=== PATIENT | male | born 1955 | race African-American/Black ===

== ENCOUNTER 2020-07-18 05:16 | Emergency (ER) | payer MEDICAID ==
[~2020-07-18 05:16] MED LIST: ASPI-1497 PO; ATOR40TA70; CLOP75TA33; NIFE60TA82
[2020-07-18 06:38] LABS: BASOPHILS % 0.5 % (0.0-2.0); EOSINOPHILS % 0.8 % (0.0-5.0); HEMATOCRIT. 39.4 % (42.0-52.0); HEMOGLOBIN. 13.4 g/dL (14.0-18.0); LYMPHOCYTES % 32.5 % (20.0-50.0); MEAN CORPUSCULAR VOLUME 91.2 fL (80.0-94.0); MEAN PLATELET VOLUME 7.9 fl (7.4-10.4); MONOCYTES % 8.7 % (2.0-8.0); NEUTROPHILS % 57.5 % (40.0-76.0); PLATELET 141 x1000/uL (130-400); RED BLOOD CELL COUNT 4.32 mill/uL (4.7-6.1); RED CELL DISTRIBUTION WIDTH 14.8 % (11.6-14.6)
[2020-07-18 06:46] LABS: CHLORIDE 110 mEq/L (98-107)
[2020-07-18 09:14] VITALS: BP 149/70
== END 2020-07-18 09:30 | disposition home or self-care (01) ==
LOC: ER 05:16
DX: R00.2 Palpitations (principal); I10 Essential (primary) hypertension; E78.5 Hyperlipidemia, unspecified; Z95.4 Presence of other heart-valve replacement
CPT/HCPCS: 36415; 71045; 80053; 83880; 84484; 85025; 93005; 99285

== ENCOUNTER 2022-04-17 13:53 | Inpatient (IN) | payer OTHER ==
[~2022-04-17] VITALS: Ht 195.6 cm; Wt 92.1 kg
[~2022-04-17 13:53] MED LIST changes: -ASPI-1497 PO; -NIFE60TA82
[2022-04-17 15:17] LABS: CHLORIDE 110 mEq/L (98-107)
[2022-04-17 15:22] LABS: BASOPHILS % 0.5 % (0.0-2.0); HEMATOCRIT. 34.1 % (42.0-52.0); HEMOGLOBIN. 11.4 g/dL (14.0-18.0); MEAN CORPUSCULAR HEMOGLOBIN 29.6 pg (28.0-32.0); MEAN CORPUSCULAR VOLUME 88.9 fL (80.0-94.0); MEAN PLATELET VOLUME 7.8 fl (7.4-10.4); MONOCYTES % 8.3 % (2.0-8.0); NEUTROPHILS % 72.2 % (40.0-76.0); PLATELET 240 x1000/uL (130-400); RED BLOOD CELL COUNT 3.84 mill/uL (4.7-6.1); RED CELL DISTRIBUTION WIDTH 15.2 % (11.6-14.6)
[2022-04-17] MEDS: ALBUTEROL (0.083%) 2.5MG/3ML NEB HHN SCH ×3 (16:00→17:08)
[2022-04-17] MEDS ORDERED: AZITHROMYCIN 500MG/250ML 250 ML IV ONE (16:00)
[2022-04-17] MEDS ORDERED: CEFTRIAXONE 2 G PREMIX 50 ML IV ONE (16:00)
[2022-04-17] MEDS ORDERED: FUROSEMIDE 40MG/4ML VIAL IV ONE (16:00)
[2022-04-17] MEDS ORDERED: DEXAMETHASONE 4MG/ML 1ML VIAL IV ONE (16:00)
[2022-04-17] MEDS ORDERED: CEFTRIAXONE 2 G in DEXTROSE 5% WATER 50 ML IV NR (16:00)
[2022-04-18 01:50] VITALS: BP 133/57
[2022-04-18] MEDS ORDERED: ONDANSETRON HCL 4MG/2ML INJ IV PRN (02:45)
[2022-04-18] MEDS ORDERED: IPRATROPIUM/ALBUTEROL 0.5-3(2.5)MG/3ML NEB HHN PRN (02:45)
[2022-04-18] MEDS ORDERED: ACETAMINOPHEN 325MG TABLET PO PRN ×2 (02:45)
[2022-04-18] MEDS ORDERED: CLONIDINE 0.1MG TABLET PO PRN (02:45)
[2022-04-18] MEDS ORDERED: MAGNESIUM/ALUMINUM HYDROXIDE/SIMETHICONE 30ML UDC PO PRN (02:45)
[2022-04-18] MEDS ORDERED: GUAIFENESIN 200MG/10ML SUGAR FREE UDC PO PRN (02:45)
[2022-04-18] MEDS ORDERED: CEFTRIAXONE 1 G PREMIX 50 ML IV SCH (02:45)
[2022-04-18 04:00] VITALS: BP 111/54
[2022-04-18 08:00] VITALS: BP 135/58
[2022-04-18] MEDS ORDERED: FUROSEMIDE 20MG TABLET PO SCH (09:15)
[2022-04-18] MEDS: METOPROLOL TARTRATE 25MG TABLET PO SCH ×2 (09:38→16:34)
[2022-04-18] MEDS: ASPIRIN 81MG EC TABLET PO SCH (09:38)
[2022-04-18] MEDS: CLOPIDOGREL 75MG TABLET PO SCH (09:38)
[2022-04-18] MEDS: ENOXAPARIN 40MG/0.4ML SYR SUBCUT SCH (09:39)
[2022-04-18 10:22] LABS: BG BASE EXCESS -1.1 mmol/L (-2.0-2.0); BG DEOXYHEMOGLOBIN 5.3 % (0.0-5.0); BG FRACTION INSPIRED OXYGEN 21; BG HCO3 ACT 22.5 mmol/L (22.0-26.0); BG METHEMOGLOBIN 0.3 % (0.0-1.5); BG OXYGEN SATURATION 94.6 % (92.0-98.5); BG OXYHEMOGLOBIN 93.4 % (94.0-97.0); BG PCO2 34.3 mmHg (35.0-45.0); BG PH 7.435 (7.350-7.450); BG PO2 73.4 mmHg (75.0-100.0); BG SAMPLE SITE RIGHT RADIAL; BG TOTAL HEMOGLOBIN 12.6 g/dL (12.0-18.0); BG VENT MODE ROOM AIR
[2022-04-18 10:37] LABS: T4 FREE 1.37 ng/dL (0.76-1.46)
[2022-04-18 12:00] VITALS: BP 152/76
[2022-04-18] MEDS ORDERED: ALBUTEROL (0.083%) 2.5MG/3ML NEB HHN PRN (12:15)
[2022-04-18] MEDS ORDERED: IPRATROPIUM BROMIDE (0.02%) 0.5MG/2.5ML NEB HHN PRN (12:15)
[2022-04-18 13:03] LABS: CLARITY URINE CLEAR (CLEAR); COLOR URINE YELLOW (YELLOW); KETONES URINE NEGATIVE (NEGATIVE); LEUKOCYTE ESTERASE URINE NEGATIVE (NEGATIVE); NITRITE URINE NEGATIVE (NEGATIVE); OCCULT BLOOD URINE 2+ (NEGATIVE); PROTEIN URINE 1+ (NEGATIVE); SPECIFIC GRAVITY URINE 1.025 (1.005-1.030)
[2022-04-18 13:29] LABS: *AMPHETAMINES SCREEN URINE NEGATIVE (NEGATIVE); *BARBITURATES SCREEN URINE NEGATIVE (NEGATIVE); *BENZODIAZEPINES SCREEN URINE NEGATIVE (NEGATIVE); *COCAINE SCREEN URINE NEGATIVE (NEGATIVE); CANNABINOID URINE SCREEN NEGATIVE (NEGATIVE); METHADONE URINE SCREEN NEGATIVE (NEGATIVE); OPIATES URINE SCREEN NEGATIVE (NEGATIVE); PHENCYCLIDINE URINE SCREEN NEGATIVE (NEGATIVE)
[2022-04-18] MEDS ORDERED: CEFTRIAXONE 1,000 MG in DEXTROSE 5% WATER 50 ML IV SCH (15:00)
[2022-04-18] MEDS: AMLODIPINE 5MG TABLET PO SCH (15:07)
[2022-04-18 15:12] LABS: FOLIC ACID (FOLATE) SERUM 11.7 ng/mL (>5.38)
[2022-04-18 16:00] VITALS: BP 139/70
[2022-04-18] MEDS ORDERED: AZITHROMYCIN 500 MG in DEXT 5% WATER 250 ML IV SCH (16:00)
[2022-04-18] MEDS ORDERED: NITROGLYCERIN 0.4MG TABLET SL SL ONE (16:15)
[2022-04-18] MEDS ORDERED: METOPROLOL TARTRATE 5MG/5ML VIAL IV NR (16:21)
[2022-04-18 17:36] LABS: INR 1.1; PROTHROMBIN TIME 11.6 sec (9.6-11.0)
[2022-04-18] MEDS: FUROSEMIDE 20MG TABLET PO SCH (19:08)
[2022-04-18 20:00] VITALS: BP 127/77
[2022-04-18] MEDS ORDERED: IPRATROPIUM/ALBUTEROL 0.5-3(2.5)MG/3ML NEB HHN SCH (20:00)
[2022-04-18] MEDS: ATORVASTATIN CALCIUM 40MG TABLET PO SCH (20:54)
[2022-04-18] MEDS: FAMOTIDINE 20MG TABLET PO SCH (20:54)
[2022-04-18] MEDS: ALBUTEROL (0.083%) 2.5MG/3ML NEB HHN SCH (21:27)
[2022-04-18] MEDS: IPRATROPIUM BROMIDE (0.02%) 0.5MG/2.5ML NEB HHN SCH (21:27)
[2022-04-19] VITALS: BP 105/58
[2022-04-19] MEDS: ALBUTEROL (0.083%) 2.5MG/3ML NEB HHN SCH ×7 (01:30→21:08)
[2022-04-19] MEDS: IPRATROPIUM BROMIDE (0.02%) 0.5MG/2.5ML NEB HHN SCH ×6 (01:30→21:08)
[2022-04-19 04:00] VITALS: BP 112/50
[2022-04-19 06:25] LABS: BASOPHILS % 0.4 % (0.0-2.0); EOSINOPHILS % 0.9 % (0.0-5.0); HEMATOCRIT. 35.6 % (42.0-52.0); HEMOGLOBIN. 11.3 g/dL (14.0-18.0); LYMPHOCYTES % 23.8 % (20.0-50.0); MEAN CORPUSCULAR HEMOGLOBIN 29.7 pg (28.0-32.0); MEAN CORPUSCULAR VOLUME 93.1 fL (80.0-94.0); MONOCYTES % 7.5 % (2.0-8.0); NEUTROPHILS % 67.4 % (40.0-76.0); PLATELET 235 x1000/uL (130-400); RED BLOOD CELL COUNT 3.82 mill/uL (4.7-6.1)
[2022-04-19] MEDS: FUROSEMIDE 20MG TABLET PO SCH ×2 (06:26→17:25)
[2022-04-19 06:46] LABS: CHLORIDE 106 mEq/L (98-107)
[2022-04-19 06:56] LABS: PHOSPHORUS 4.9 mg/dL (2.5-4.9)
[2022-04-19 08:00] VITALS: BP 138/59
[2022-04-19] MEDS: ASPIRIN 81MG EC TABLET PO SCH (09:24)
[2022-04-19] MEDS: AMLODIPINE 5MG TABLET PO SCH (09:27)
[2022-04-19] MEDS: CLOPIDOGREL 75MG TABLET PO SCH (09:27)
[2022-04-19] MEDS: METOPROLOL TARTRATE 25MG TABLET PO SCH ×2 (09:27→17:25)
[2022-04-19] MEDS: ENOXAPARIN 40MG/0.4ML SYR SUBCUT SCH (09:28)
[2022-04-19] MEDS ORDERED: SODIUM CHLORIDE 0.45% 500 ML IV ONE (10:45)
[2022-04-19 12:00] VITALS: BP 130/70
[2022-04-19 16:00] VITALS: BP 138/74
[2022-04-19 20:00] VITALS: BP 120/59
[2022-04-19] MEDS: FAMOTIDINE 20MG TABLET PO SCH (21:44)
[2022-04-19] MEDS: ATORVASTATIN CALCIUM 40MG TABLET PO SCH (21:44)
[2022-04-20] MEDS: IPRATROPIUM BROMIDE (0.02%) 0.5MG/2.5ML NEB HHN SCH ×5 (00:40→22:11)
[2022-04-20] MEDS: ALBUTEROL (0.083%) 2.5MG/3ML NEB HHN SCH ×5 (00:40→22:11)
[2022-04-20 04:00] VITALS: BP 132/59
[2022-04-20] MEDS: FUROSEMIDE 20MG TABLET PO SCH (06:24)
[2022-04-20 07:09] LABS: PHOSPHORUS 4.6 mg/dL (2.5-4.9)
[2022-04-20 08:00] VITALS: BP 128/62
[2022-04-20 08:10] LABS: HEMATOCRIT 33.4 % (42.0-52.0); HEMOGLOBIN 11.2 g/dL (14.0-18.0); MEAN CORPUSCULAR HEMOGLOBIN 29.6 pg (28.0-32.0); MEAN CORPUSCULAR VOLUME 88.7 fL (80.0-94.0); PLATELET 226 x1000/uL (130-400); RED BLOOD CELL COUNT 3.77 mill/uL (4.7-6.1); RED CELL DISTRIBUTION WIDTH 15.5 % (11.6-14.6)
[2022-04-20] MEDS: ASPIRIN 81MG EC TABLET PO SCH ×2 (09:00→11:57)
[2022-04-20] MEDS: AMLODIPINE 5MG TABLET PO SCH ×2 (09:00→11:57)
[2022-04-20] MEDS: METOPROLOL TARTRATE 25MG TABLET PO SCH ×3 (09:00→17:56)
[2022-04-20] MEDS: CLOPIDOGREL 75MG TABLET PO SCH ×2 (09:00→11:57)
[2022-04-20] MEDS: AZITHROMYCIN 250 MG TABLET PO SCH ×2 (09:00→11:57)
[2022-04-20] MEDS: ENOXAPARIN 40MG/0.4ML SYR SUBCUT SCH ×2 (09:00→11:56)
[2022-04-20 12:00] VITALS: BP 118/44
[2022-04-20 16:00] VITALS: BP 130/60
[2022-04-20 20:00] VITALS: BP 119/51
[2022-04-20] MEDS ORDERED: CEFTRIAXONE 1,000 MG in SODIUM CHLORIDE 0.9% 50 ML IV SCH (20:00)
[2022-04-20] MEDS: FAMOTIDINE 20MG TABLET PO SCH (21:58)
[2022-04-20] MEDS: ATORVASTATIN CALCIUM 40MG TABLET PO SCH (21:58)
[2022-04-20] MEDS: CEFTRIAXONE 1,000 MG in DEXTROSE 5% WATER 50 ML IV SCH (22:00)
[2022-04-21] VITALS: BP 139/55
[2022-04-21] MEDS: ALBUTEROL (0.083%) 2.5MG/3ML NEB HHN SCH ×6 (01:48→21:09)
[2022-04-21] MEDS: IPRATROPIUM BROMIDE (0.02%) 0.5MG/2.5ML NEB HHN SCH ×6 (01:48→21:09)
[2022-04-21 07:59] LABS: BASOPHILS % 0.4 % (0.0-2.0); EOSINOPHILS % 2.5 % (0.0-5.0); HEMOGLOBIN. 10.6 g/dL (14.0-18.0); LYMPHOCYTES % 13.7 % (20.0-50.0); MEAN CORPUSCULAR HEMOGLOBIN 29.9 pg (28.0-32.0); MEAN CORPUSCULAR VOLUME 87.5 fL (80.0-94.0); MEAN PLATELET VOLUME 7.7 fl (7.4-10.4); MONOCYTES % 8.2 % (2.0-8.0); NEUTROPHILS % 75.2 % (40.0-76.0); PLATELET 217 x1000/uL (130-400); RED BLOOD CELL COUNT 3.54 mill/uL (4.7-6.1); RED CELL DISTRIBUTION WIDTH 15.4 % (11.6-14.6)
[2022-04-21 08:22] VITALS: BP 154/49
[2022-04-21 08:24] LABS: CHLORIDE 108 mEq/L (98-107)
[2022-04-21] MEDS: ASPIRIN 81MG EC TABLET PO SCH (09:37)
[2022-04-21] MEDS: CLOPIDOGREL 75MG TABLET PO SCH (09:37)
[2022-04-21] MEDS: METOPROLOL TARTRATE 25MG TABLET PO SCH ×2 (09:37→17:39)
[2022-04-21] MEDS: AZITHROMYCIN 250 MG TABLET PO SCH (09:37)
[2022-04-21] MEDS: AMLODIPINE 5MG TABLET PO SCH (09:38)
[2022-04-21] MEDS: ENOXAPARIN 40MG/0.4ML SYR SUBCUT SCH (09:40)
[2022-04-21 11:49] VITALS: BP 140/54
[2022-04-21 15:50] VITALS: BP 143/67
[2022-04-21 20:00] VITALS: BP 139/60
[2022-04-21] MEDS: CEFTRIAXONE 1,000 MG in DEXTROSE 5% WATER 50 ML IV SCH (21:57)
[2022-04-21] MEDS: ATORVASTATIN CALCIUM 40MG TABLET PO SCH (21:58)
[2022-04-21] MEDS: FAMOTIDINE 20MG TABLET PO SCH (21:58)
[2022-04-22] VITALS: BP 147/58
[2022-04-22] MEDS: ALBUTEROL (0.083%) 2.5MG/3ML NEB HHN SCH ×5 (00:52→21:28)
[2022-04-22] MEDS: IPRATROPIUM BROMIDE (0.02%) 0.5MG/2.5ML NEB HHN SCH ×5 (00:53→21:29)
[2022-04-22 04:00] VITALS: BP 147/62
[2022-04-22 07:17] LABS: BASOPHILS % 0.3 % (0.0-2.0); EOSINOPHILS % 2.6 % (0.0-5.0); HEMATOCRIT. 31.5 % (42.0-52.0); HEMOGLOBIN. 10.7 g/dL (14.0-18.0); MEAN CORPUSCULAR HEMOGLOBIN 29.8 pg (28.0-32.0); MEAN PLATELET VOLUME 7.9 fl (7.4-10.4); MONOCYTES % 8.2 % (2.0-8.0); NEUTROPHILS % 74.9 % (40.0-76.0); PLATELET 232 x1000/uL (130-400); RED BLOOD CELL COUNT 3.58 mill/uL (4.7-6.1); RED CELL DISTRIBUTION WIDTH 15.7 % (11.6-14.6)
[2022-04-22 07:23] LABS: CHLORIDE 109 mEq/L (98-107)
[2022-04-22 08:00] VITALS: BP 154/73
[2022-04-22] MEDS: AMLODIPINE 5MG TABLET PO SCH (09:26)
[2022-04-22] MEDS: CLOPIDOGREL 75MG TABLET PO SCH (09:26)
[2022-04-22] MEDS: ASPIRIN 81MG EC TABLET PO SCH (09:27)
[2022-04-22] MEDS: METOPROLOL TARTRATE 25MG TABLET PO SCH ×2 (09:27→17:00)
[2022-04-22] MEDS: ENOXAPARIN 40MG/0.4ML SYR SUBCUT SCH (09:27)
[2022-04-22] MEDS: AZITHROMYCIN 250 MG TABLET PO SCH (10:20)
[2022-04-22 12:00] VITALS: BP 133/44
[2022-04-22 16:00] VITALS: BP 148/65
[2022-04-22 20:00] VITALS: BP 140/50
[2022-04-22] MEDS: CEFTRIAXONE 1,000 MG in DEXTROSE 5% WATER 50 ML IV SCH (21:32)
[2022-04-22] MEDS: ATORVASTATIN CALCIUM 40MG TABLET PO SCH (21:32)
[2022-04-22] MEDS: FAMOTIDINE 20MG TABLET PO SCH (21:32)
[2022-04-22] MEDS: GUAIFENESIN 600MG ER TABLET PO SCH (21:32)
[2022-04-23] VITALS: BP 134/49
[2022-04-23] MEDS: ALBUTEROL (0.083%) 2.5MG/3ML NEB HHN SCH ×6 (00:09→20:52)
[2022-04-23] MEDS: IPRATROPIUM BROMIDE (0.02%) 0.5MG/2.5ML NEB HHN SCH ×6 (00:09→20:52)
[2022-04-23 04:00] VITALS: BP 154/71
[2022-04-23 06:26] LABS: BASOPHILS % 0.4 % (0.0-2.0); EOSINOPHILS % 2.9 % (0.0-5.0); HEMATOCRIT. 35.5 % (42.0-52.0); HEMOGLOBIN. 12.1 g/dL (14.0-18.0); LYMPHOCYTES % 15.7 % (20.0-50.0); MEAN CORPUSCULAR HEMOGLOBIN 30.4 pg (28.0-32.0); MEAN CORPUSCULAR VOLUME 89.1 fL (80.0-94.0); MEAN PLATELET VOLUME 7.8 fl (7.4-10.4); MONOCYTES % 8.1 % (2.0-8.0); NEUTROPHILS % 72.9 % (40.0-76.0); PLATELET 241 x1000/uL (130-400); RED BLOOD CELL COUNT 3.99 mill/uL (4.7-6.1); RED CELL DISTRIBUTION WIDTH 15.2 % (11.6-14.6)
[2022-04-23 06:42] LABS: CHLORIDE 109 mEq/L (98-107)
[2022-04-23 08:02] VITALS: BP 140/60
[2022-04-23] MEDS: GUAIFENESIN 600MG ER TABLET PO SCH ×2 (09:00→22:03)
[2022-04-23] MEDS: METOPROLOL TARTRATE 25MG TABLET PO SCH ×2 (09:00→17:34)
[2022-04-23] MEDS: CLOPIDOGREL 75MG TABLET PO SCH (09:00)
[2022-04-23] MEDS: ASPIRIN 81MG EC TABLET PO SCH (09:00)
[2022-04-23] MEDS: ENOXAPARIN 40MG/0.4ML SYR SUBCUT SCH (09:00)
[2022-04-23] MEDS: AMLODIPINE 5MG TABLET PO SCH (09:00)
[2022-04-23] MEDS: AZITHROMYCIN 250 MG TABLET PO SCH (09:00)
[2022-04-23 12:03] VITALS: BP 165/58
[2022-04-23] MEDS: SODIUM CHLORIDE 0.45% 1,000 ML IV SCH ×2 (12:21→23:35)
[2022-04-23 16:00] VITALS: BP 152/65
[2022-04-23 20:00] VITALS: BP 133/64
[2022-04-23] MEDS: CEFTRIAXONE 1,000 MG in DEXTROSE 5% WATER 50 ML IV SCH (21:58)
[2022-04-23] MEDS: ATORVASTATIN CALCIUM 40MG TABLET PO SCH (22:03)
[2022-04-23] MEDS: FAMOTIDINE 20MG TABLET PO SCH (22:03)
[2022-04-24] VITALS: BP 165/45
[2022-04-24 04:00] VITALS: BP 147/42
[2022-04-24 07:43] LABS: CHLORIDE 110 mEq/L (98-107)
[2022-04-24 07:52] LABS: PHOSPHORUS 3.9 mg/dL (2.5-4.9)
[2022-04-24 08:00] VITALS: BP 151/59
[2022-04-24] MEDS: ENOXAPARIN 40MG/0.4ML SYR SUBCUT SCH (09:00)
[2022-04-24] MEDS: AZITHROMYCIN 250 MG TABLET PO SCH (09:49)
[2022-04-24] MEDS: CLOPIDOGREL 75MG TABLET PO SCH (09:49)
[2022-04-24] MEDS: GUAIFENESIN 600MG ER TABLET PO SCH ×2 (09:49→20:27)
[2022-04-24] MEDS: ASPIRIN 81MG EC TABLET PO SCH (09:49)
[2022-04-24] MEDS: AMLODIPINE 5MG TABLET PO SCH (09:49)
[2022-04-24] MEDS: METOPROLOL TARTRATE 25MG TABLET PO SCH (09:50)
[2022-04-24 10:27] LABS: BG CARBOXYHEMOGLOBIN 0.8 % (0.5-1.5); BG DEOXYHEMOGLOBIN 13.7 % (0.0-5.0); BG HCO3 ACT 22.1 mmol/L (22.0-26.0); BG METHEMOGLOBIN 0.2 % (0.0-1.5); BG OXYGEN SATURATION 86.2 % (92.0-98.5); BG OXYHEMOGLOBIN 85.3 % (94.0-97.0); BG PCO2 28.4 mmHg (35.0-45.0); BG PH 7.508 (7.350-7.450); BG PO2 48.6 mmHg (75.0-100.0); BG SAMPLE SITE RIGHT RADIAL; BG TOTAL HEMOGLOBIN 12.8 g/dL (12.0-18.0); BG VENT MODE ROOM AIR
[2022-04-24 10:35] LABS: BASOPHILS % 0.4 % (0.0-2.0); EOSINOPHILS % 1.3 % (0.0-5.0); HEMATOCRIT. 32.5 % (42.0-52.0); LYMPHOCYTES % 8.7 % (20.0-50.0); MEAN CORPUSCULAR HEMOGLOBIN 29.6 pg (28.0-32.0); MEAN CORPUSCULAR VOLUME 87.9 fL (80.0-94.0); MEAN PLATELET VOLUME 7.6 fl (7.4-10.4); MONOCYTES % 7.9 % (2.0-8.0); NEUTROPHILS % 81.7 % (40.0-76.0); PLATELET 231 x1000/uL (130-400); RED CELL DISTRIBUTION WIDTH 15.2 % (11.6-14.6)
[2022-04-24] MEDS ORDERED: FUROSEMIDE 20MG/2ML VIAL IVP NR (11:00)
[2022-04-24 12:00] VITALS: BP 127/47
[2022-04-24 16:02] VITALS: BP 130/50
[2022-04-24 20:00] VITALS: BP 138/51
[2022-04-24] MEDS: DOXYCYCLINE 100 MG in DEXT 5% WATER 100 ML IV SCH (20:24)
[2022-04-24] MEDS: CEFTRIAXONE 1,000 MG in DEXTROSE 5% WATER 50 ML IV SCH (20:24)
[2022-04-24] MEDS: CARVEDILOL 3.125 MG TABLET PO SCH (20:26)
[2022-04-24] MEDS: FAMOTIDINE 20MG TABLET PO SCH (20:27)
[2022-04-24] MEDS: ATORVASTATIN CALCIUM 40MG TABLET PO SCH (20:27)
[2022-04-24] MEDS: LOSARTAN POTASSIUM 25 MG TABLET PO SCH (20:27)
[2022-04-25] VITALS: BP 111/47
[2022-04-25 04:00] VITALS: BP 131/71
[2022-04-25 06:31] LABS: BASOPHILS % 0.3 % (0.0-2.0); EOSINOPHILS % 4.3 % (0.0-5.0); HEMATOCRIT. 32.4 % (42.0-52.0); HEMOGLOBIN. 10.8 g/dL (14.0-18.0); LYMPHOCYTES % 18.4 % (20.0-50.0); MEAN CORPUSCULAR VOLUME 89.6 fL (80.0-94.0); MEAN PLATELET VOLUME 7.9 fl (7.4-10.4); MONOCYTES % 9.9 % (2.0-8.0); NEUTROPHILS % 67.1 % (40.0-76.0); PLATELET 231 x1000/uL (130-400); RED BLOOD CELL COUNT 3.62 mill/uL (4.7-6.1); RED CELL DISTRIBUTION WIDTH 15.5 % (11.6-14.6)
[2022-04-25 06:42] LABS: CHLORIDE 104 mEq/L (98-107)
[2022-04-25 08:00] VITALS: BP 136/58
[2022-04-25] MEDS: DOXYCYCLINE 100 MG in DEXT 5% WATER 100 ML IV SCH ×2 (08:32→21:58)
[2022-04-25] MEDS: AMLODIPINE 5MG TABLET PO SCH (08:32)
[2022-04-25] MEDS: ASPIRIN 81MG EC TABLET PO SCH (08:32)
[2022-04-25] MEDS: GUAIFENESIN 600MG ER TABLET PO SCH ×2 (08:33→21:57)
[2022-04-25] MEDS: ENOXAPARIN 40MG/0.4ML SYR SUBCUT SCH (08:33)
[2022-04-25] MEDS: CARVEDILOL 3.125 MG TABLET PO SCH ×2 (08:33→20:54)
[2022-04-25] MEDS: LOSARTAN POTASSIUM 25 MG TABLET PO SCH ×2 (08:33→20:54)
[2022-04-25] MEDS: CLOPIDOGREL 75MG TABLET PO SCH (08:33)
[2022-04-25] MEDS ORDERED: ALBUTEROL (0.083%) 2.5MG/3ML NEB HHN PRN (09:15)
[2022-04-25] MEDS: ALBUTEROL (0.083%) 2.5MG/3ML NEB HHN SCH ×3 (11:10→21:33)
[2022-04-25] MEDS: IPRATROPIUM BROMIDE (0.02%) 0.5MG/2.5ML NEB HHN SCH ×3 (11:11→21:32)
[2022-04-25 12:00] VITALS: BP 126/42
[2022-04-25] MEDS ORDERED: ALBUTEROL (0.083%) 2.5MG/3ML NEB HHN SCH (12:00)
[2022-04-25] MEDS ORDERED: IPRATROPIUM/ALBUTEROL 0.5-3(2.5)MG/3ML NEB HHN SCH (12:00)
[2022-04-25 16:00] VITALS: BP 137/71
[2022-04-25] MEDS ORDERED: IOHEXOL-350 100 ML BOTTLE ONE (16:32)
[2022-04-25 17:30] LABS: BG BASE EXCESS 1.6 mmol/L (-2.0-2.0); BG CARBOXYHEMOGLOBIN 0.6 % (0.5-1.5); BG DEOXYHEMOGLOBIN 6.4 % (0.0-5.0); BG FRACTION INSPIRED OXYGEN 32; BG HCO3 ACT 25.3 mmol/L (22.0-26.0); BG METHEMOGLOBIN 0.2 % (0.0-1.5); BG OXYGEN SATURATION 93.5 % (92.0-98.5); BG OXYHEMOGLOBIN 92.8 % (94.0-97.0); BG PCO2 36.3 mmHg (35.0-45.0); BG PH 7.461 (7.350-7.450); BG PO2 69.1 mmHg (75.0-100.0); BG SAMPLE SITE RIGHT BRACHIAL; BG TOTAL HEMOGLOBIN 11.2 g/dL (12.0-18.0); BG VENT MODE NASAL CANNULA
[2022-04-25] MEDS: METHYLPREDNISOLONE SOD SUCC 40 MG/ML VIAL IV SCH (18:33)
[2022-04-25 20:00] VITALS: BP 111/48
[2022-04-25] MEDS: ATORVASTATIN CALCIUM 40MG TABLET PO SCH (21:57)
[2022-04-25] MEDS: CEFTRIAXONE 1,000 MG in DEXTROSE 5% WATER 50 ML IV SCH (21:58)
[2022-04-25] MEDS: FAMOTIDINE 20MG TABLET PO SCH (21:58)
[2022-04-26] VITALS: BP 122/96
[2022-04-26] MEDS: ALBUTEROL (0.083%) 2.5MG/3ML NEB HHN SCH ×7 (00:34→23:50)
[2022-04-26] MEDS: IPRATROPIUM BROMIDE (0.02%) 0.5MG/2.5ML NEB HHN SCH ×7 (00:34→23:50)
[2022-04-26] MEDS: METHYLPREDNISOLONE SOD SUCC 40 MG/ML VIAL IV SCH ×3 (02:41→18:01)
[2022-04-26 03:00] VITALS: BP 133/62
[2022-04-26 07:26] LABS: HEMOGLOBIN. 10.6 g/dL (14.0-18.0); MEAN CORPUSCULAR HEMOGLOBIN 29.2 pg (28.0-32.0); MEAN CORPUSCULAR VOLUME 88.4 fL (80.0-94.0); PLATELET 233 x1000/uL (130-400); RED BLOOD CELL COUNT 3.62 mill/uL (4.7-6.1); RED CELL DISTRIBUTION WIDTH 15.5 % (11.6-14.6)
[2022-04-26 08:00] VITALS: BP 130/58
[2022-04-26 08:11] LABS: CHLORIDE 105 mEq/L (98-107)
[2022-04-26] MEDS: ASPIRIN 81MG EC TABLET PO SCH (09:34)
[2022-04-26] MEDS: GUAIFENESIN 600MG ER TABLET PO SCH ×2 (09:34→21:38)
[2022-04-26] MEDS: CARVEDILOL 3.125 MG TABLET PO SCH ×2 (09:34→21:38)
[2022-04-26] MEDS: LOSARTAN POTASSIUM 25 MG TABLET PO SCH ×2 (09:35→21:38)
[2022-04-26] MEDS: ENOXAPARIN 40MG/0.4ML SYR SUBCUT SCH (09:35)
[2022-04-26] MEDS: CLOPIDOGREL 75MG TABLET PO SCH (09:35)
[2022-04-26] MEDS: AMLODIPINE 5MG TABLET PO SCH (09:41)
[2022-04-26] MEDS: DOXYCYCLINE 100 MG in DEXT 5% WATER 100 ML IV SCH ×2 (10:32→20:00)
[2022-04-26 12:00] VITALS: BP 141/68
[2022-04-26 13:07] LABS: HIV SCREEN 4G Non Reactive (Non Reactive)
[2022-04-26 13:33] LABS: PLATELET ESTIMATE NORMAL
[2022-04-26 16:00] VITALS: BP 130/55
[2022-04-26 20:00] VITALS: BP 128/64
[2022-04-26] MEDS ORDERED: CEFTRIAXONE 1 G PREMIX 50 ML IV SCH (21:30)
[2022-04-26] MEDS: CEFTRIAXONE 1,000 MG in DEXTROSE 5% WATER 50 ML IV SCH (21:37)
[2022-04-26] MEDS: ATORVASTATIN CALCIUM 40MG TABLET PO SCH (21:38)
[2022-04-26] MEDS: FAMOTIDINE 20MG TABLET PO SCH (21:38)
[2022-04-27] VITALS: BP 117/51
[2022-04-27] MEDS: METHYLPREDNISOLONE SOD SUCC 40 MG/ML VIAL IV SCH ×5 (02:18→23:38)
[2022-04-27] MEDS: IPRATROPIUM BROMIDE (0.02%) 0.5MG/2.5ML NEB HHN SCH ×5 (03:54→20:20)
[2022-04-27] MEDS: ALBUTEROL (0.083%) 2.5MG/3ML NEB HHN SCH ×5 (03:54→20:20)
[2022-04-27 04:00] VITALS: BP 131/86
[2022-04-27 07:37] LABS: HEMATOCRIT 30.8 % (42.0-52.0); HEMOGLOBIN 10.2 g/dL (14.0-18.0); MEAN CORPUSCULAR HEMOGLOBIN 28.7 pg (28.0-32.0); PLATELET 263 x1000/uL (130-400); RED BLOOD CELL COUNT 3.54 mill/uL (4.7-6.1)
[2022-04-27 07:53] LABS: CHLORIDE 108 mEq/L (98-107)
[2022-04-27 08:00] VITALS: BP 123/55
[2022-04-27] MEDS: CARVEDILOL 3.125 MG TABLET PO SCH ×2 (09:21→20:54)
[2022-04-27] MEDS: CLOPIDOGREL 75MG TABLET PO SCH (09:21)
[2022-04-27] MEDS: AMLODIPINE 5MG TABLET PO SCH (09:22)
[2022-04-27] MEDS: LOSARTAN POTASSIUM 25 MG TABLET PO SCH ×2 (09:22→20:53)
[2022-04-27] MEDS: GUAIFENESIN 600MG ER TABLET PO SCH ×2 (09:22→20:51)
[2022-04-27] MEDS: ASPIRIN 81MG EC TABLET PO SCH (09:22)
[2022-04-27] MEDS: DOXYCYCLINE 100 MG in DEXT 5% WATER 100 ML IV SCH ×2 (09:23→20:51)
[2022-04-27] MEDS: ENOXAPARIN 40MG/0.4ML SYR SUBCUT SCH (09:23)
[2022-04-27 12:00] VITALS: BP 126/53
[2022-04-27 16:00] VITALS: BP 139/64
[2022-04-27 20:00] VITALS: BP 133/55
[2022-04-27] MEDS: ATORVASTATIN CALCIUM 40MG TABLET PO SCH (20:51)
[2022-04-27] MEDS: FAMOTIDINE 20MG TABLET PO SCH (20:51)
[2022-04-27] MEDS: CEFTRIAXONE 1,000 MG in DEXTROSE 5% WATER 50 ML IV SCH (22:05)
[2022-04-28] MEDS: ALBUTEROL (0.083%) 2.5MG/3ML NEB HHN SCH ×6 (00:55→20:16)
[2022-04-28] MEDS: IPRATROPIUM BROMIDE (0.02%) 0.5MG/2.5ML NEB HHN SCH ×6 (00:55→20:16)
[2022-04-28 04:00] VITALS: BP 140/61
[2022-04-28 07:02] LABS: HEMATOCRIT 30.1 % (42.0-52.0); HEMOGLOBIN 10.1 g/dL (14.0-18.0); MEAN CORPUSCULAR HEMOGLOBIN 29.2 pg (28.0-32.0); MEAN CORPUSCULAR VOLUME 86.8 fL (80.0-94.0); PLATELET 256 x1000/uL (130-400); RED BLOOD CELL COUNT 3.47 mill/uL (4.7-6.1)
[2022-04-28 07:20] LABS: CHLORIDE 106 mEq/L (98-107)
[2022-04-28 08:00] VITALS: BP 118/62
[2022-04-28] MEDS: ASPIRIN 81MG EC TABLET PO SCH (09:45)
[2022-04-28] MEDS: ENOXAPARIN 40MG/0.4ML SYR SUBCUT SCH (09:45)
[2022-04-28] MEDS: GUAIFENESIN 600MG ER TABLET PO SCH ×2 (09:45→22:09)
[2022-04-28] MEDS: AMLODIPINE 5MG TABLET PO SCH (09:45)
[2022-04-28] MEDS: CARVEDILOL 3.125 MG TABLET PO SCH ×2 (09:46→22:19)
[2022-04-28] MEDS: LOSARTAN POTASSIUM 25 MG TABLET PO SCH ×2 (09:46→22:10)
[2022-04-28] MEDS: CLOPIDOGREL 75MG TABLET PO SCH (09:46)
[2022-04-28] MEDS: METHYLPREDNISOLONE SOD SUCC 40 MG/ML VIAL IV SCH (09:46)
[2022-04-28] MEDS: DOXYCYCLINE 100 MG in DEXT 5% WATER 100 ML IV SCH ×2 (09:47→22:09)
[2022-04-28 12:00] VITALS: BP 117/54
[2022-04-28 16:00] VITALS: BP 115/51
[2022-04-28] MEDS: PREDNISONE 20MG TABLET PO SCH (18:30)
[2022-04-28 20:00] VITALS: BP 138/50
[2022-04-28] MEDS: ATORVASTATIN CALCIUM 40MG TABLET PO SCH (22:10)
[2022-04-28] MEDS: FAMOTIDINE 20MG TABLET PO SCH (22:10)
[2022-04-28] MEDS: CEFTRIAXONE 1,000 MG in DEXTROSE 5% WATER 50 ML IV SCH (23:19)
[2022-04-29] VITALS: BP 101/65
[2022-04-29] MEDS: ALBUTEROL (0.083%) 2.5MG/3ML NEB HHN SCH ×5 (00:05→15:15)
[2022-04-29] MEDS: IPRATROPIUM BROMIDE (0.02%) 0.5MG/2.5ML NEB HHN SCH ×4 (00:05→15:15)
[2022-04-29 04:00] VITALS: BP 152/73
[2022-04-29 06:29] LABS: HEMATOCRIT. 30.9 % (42.0-52.0); HEMOGLOBIN. 10.2 g/dL (14.0-18.0); MEAN CORPUSCULAR VOLUME 88.1 fL (80.0-94.0); MEAN PLATELET VOLUME 7.7 fl (7.4-10.4); PLATELET 240 x1000/uL (130-400); RED BLOOD CELL COUNT 3.51 mill/uL (4.7-6.1); RED CELL DISTRIBUTION WIDTH 15.4 % (11.6-14.6)
[2022-04-29 07:36] LABS: CHLORIDE 107 mEq/L (98-107)
[2022-04-29 08:00] VITALS: BP 118/62
[2022-04-29] MEDS: GUAIFENESIN 600MG ER TABLET PO SCH ×2 (09:15→20:58)
[2022-04-29] MEDS: DOXYCYCLINE 100 MG in DEXT 5% WATER 100 ML IV SCH ×2 (09:15→20:59)
[2022-04-29] MEDS: AMLODIPINE 5MG TABLET PO SCH (09:15)
[2022-04-29] MEDS: PREDNISONE 20MG TABLET PO SCH ×2 (09:15→18:12)
[2022-04-29] MEDS: CLOPIDOGREL 75MG TABLET PO SCH (09:15)
[2022-04-29] MEDS: ASPIRIN 81MG EC TABLET PO SCH (09:15)
[2022-04-29] MEDS: LOSARTAN POTASSIUM 25 MG TABLET PO SCH ×2 (09:15→21:07)
[2022-04-29] MEDS: ENOXAPARIN 40MG/0.4ML SYR SUBCUT SCH (09:16)
[2022-04-29] MEDS: CARVEDILOL 3.125 MG TABLET PO SCH ×2 (09:16→20:58)
[2022-04-29 10:03] LABS: PLATELET ESTIMATE NORMAL
[2022-04-29 12:00] VITALS: BP 121/55
[2022-04-29] MEDS ORDERED: SODIUM POLYSTYRENE SULFONATE 15 G/60 ML BOT PO ONE (13:45)
[2022-04-29] MEDS ORDERED: SODIUM POLYSTYRENE SULFONATE 15 G/60 ML BOT PO NR (13:45)
[2022-04-29 16:00] VITALS: BP 114/60
[2022-04-29] MEDS ORDERED: IPRATROPIUM BROMIDE (0.02%) 0.5MG/2.5ML NEB HHN PRN (17:00)
[2022-04-29] MEDS ORDERED: ALBUTEROL (0.083%) 2.5MG/3ML NEB HHN PRN (17:00)
[2022-04-29 20:00] VITALS: BP 113/60
[2022-04-29] MEDS: ATORVASTATIN CALCIUM 40MG TABLET PO SCH (20:58)
[2022-04-29] MEDS: FAMOTIDINE 20MG TABLET PO SCH (20:58)
[2022-04-29] MEDS: CEFTRIAXONE 1,000 MG in DEXTROSE 5% WATER 50 ML IV SCH (20:59)
[2022-04-30] VITALS: BP 113/74
[2022-04-30] MEDS: ALBUTEROL (0.083%) 2.5MG/3ML NEB HHN SCH ×3 (01:37→16:10)
[2022-04-30] MEDS: IPRATROPIUM BROMIDE (0.02%) 0.5MG/2.5ML NEB HHN SCH ×3 (01:40→16:09)
[2022-04-30 04:00] VITALS: BP 117/59
[2022-04-30 06:44] LABS: HEMATOCRIT 32.5 % (42.0-52.0); MEAN CORPUSCULAR HEMOGLOBIN 29.5 pg (28.0-32.0); MEAN CORPUSCULAR VOLUME 87.1 fL (80.0-94.0); PLATELET 256 x1000/uL (130-400); RED BLOOD CELL COUNT 3.73 mill/uL (4.7-6.1); RED CELL DISTRIBUTION WIDTH 15.2 % (11.6-14.6)
[2022-04-30 07:30] LABS: CHLORIDE 111 mEq/L (98-107)
[2022-04-30 08:00] VITALS: BP 142/65
[2022-04-30] MEDS: ENOXAPARIN 40MG/0.4ML SYR SUBCUT SCH (08:49)
[2022-04-30] MEDS: LOSARTAN POTASSIUM 25 MG TABLET PO SCH (08:49)
[2022-04-30] MEDS: PREDNISONE 20MG TABLET PO SCH (08:49)
[2022-04-30] MEDS: ASPIRIN 81MG EC TABLET PO SCH (08:49)
[2022-04-30] MEDS: CARVEDILOL 3.125 MG TABLET PO SCH (08:49)
[2022-04-30] MEDS: CLOPIDOGREL 75MG TABLET PO SCH (08:50)
[2022-04-30] MEDS: GUAIFENESIN 600MG ER TABLET PO SCH (08:50)
[2022-04-30] MEDS: AMLODIPINE 5MG TABLET PO SCH (08:50)
[2022-04-30] MEDS: DOXYCYCLINE 100 MG in DEXT 5% WATER 100 ML IV SCH (08:54)
[2022-04-30 12:00] VITALS: BP 128/55
[2022-04-30] MEDS ORDERED: ASPI-1406 PO (14:55)
[2022-04-30] MEDS ORDERED: COR3 PO (14:55)
[2022-04-30] MEDS ORDERED: P20 PO (14:55)
[2022-04-30] MEDS ORDERED: LOSA25TA3 PO (14:55)
[2022-04-30] MEDS ORDERED: AMLO5TAB88 PO (14:55)
[2022-04-30 15:13] VITALS: BP 128/55
[2022-04-30 16:00] VITALS: BP 126/53
[2022-04-30] MEDS ORDERED: CARVEDILOL 6.25 MG TABLET PO SCH (21:00)
[2022-05-02 13:04] LABS: HISTOPLASMA ABS QT DID NOT DETECTED
== END 2022-04-30 17:35 | disposition home or self-care (01) | DRG 196 ==
LOC: ER 13:53 → MICUSO 22:45 → 7EST 04-18 04:12
PROVIDERS: ADMIT Internal Medicine; ATTEND Internal Medicine
DX: J84.9 Interstitial pulmonary disease, unspecified (principal); I50.23 Acute on chronic systolic (congestive) heart failure; J96.01 Acute respiratory failure with hypoxia; N17.9 Acute kidney failure, unspecified; E44.1 Mild protein-calorie malnutrition; I13.0 Hypertensive heart and chronic kidney disease with heart failure and stage 1 through stage 4 chronic kidney disease, or unspecified chronic kidney disease; I42.9 Cardiomyopathy, unspecified; E78.00 Pure hypercholesterolemia, unspecified; Z20.822 Contact with and (suspected) exposure to COVID-19; N18.9 Chronic kidney disease, unspecified; R74.01 Elevation of levels of liver transaminase levels; D63.1 Anemia in chronic kidney disease; E78.5 Hyperlipidemia, unspecified; I08.3 Combined rheumatic disorders of mitral, aortic and tricuspid valves; I27.20 Pulmonary hypertension, unspecified; I80.3 Phlebitis and thrombophlebitis of lower extremities, unspecified; I69.398 Other sequelae of cerebral infarction; Z79.52 Long term (current) use of systemic steroids; Z95.2 Presence of prosthetic heart valve; Z79.899 Other long term (current) drug therapy; Z79.02 Long term (current) use of antithrombotics/antiplatelets; Z95.828 Presence of other vascular implants and grafts; Z86.718 Personal history of other venous thrombosis and embolism; Z86.16 Personal history of COVID-19; Z87.891 Personal history of nicotine dependence; Z79.82 Long term (current) use of aspirin
CPT/HCPCS: 36415; 36600; 71045; 71250; 71275; 80048; 80053; 80061; 80076; 80305; 81003; 82375; 82607; 82728; 82746; 82805; 83036; 83540; 83550; 83605; 83735; 83880; 84100; 84145; 84439; 84443; 84481; 84484; 85025; 85027; 85379; 86635; 86698; 86713; 87070; 87389; 87426; 87804; 93005; 93306; 93970; 94640; 97162; 97165; 99291; C1893; C9803; J0456; J0696; J1100; J1650; J1940; J2405; J2920; J3490; J7060; J7512; Q9967

== ENCOUNTER 2022-05-01 01:20 | Inpatient (IN) | payer OTHER ==
[~2022-05-01] VITALS: Ht 195.6 cm; Wt 99.8 kg
[~2022-05-01 01:20] MED LIST changes: +AMLO5TAB88 PO; +ASPI-1406 PO; +COR3 PO; +LOSA25TA3 PO; +P20 PO
[2022-05-01] MEDS ORDERED: LORAZEPAM 1MG TABLET PO ONE (03:15)
[2022-05-01 03:38] LABS: BASOPHILS % 0.1 % (0.0-2.0); EOSINOPHILS % 0.1 % (0.0-5.0); HEMATOCRIT. 35.2 % (42.0-52.0); HEMOGLOBIN. 11.4 g/dL (14.0-18.0); LYMPHOCYTES % 9.2 % (20.0-50.0); MEAN CORPUSCULAR HEMOGLOBIN 28.2 pg (28.0-32.0); MEAN CORPUSCULAR VOLUME 86.6 fL (80.0-94.0); MEAN PLATELET VOLUME 8.5 fl (7.4-10.4); MONOCYTES % 6.1 % (2.0-8.0); NEUTROPHILS % 84.5 % (40.0-76.0); PLATELET 273 x1000/uL (130-400); RED BLOOD CELL COUNT 4.06 mill/uL (4.7-6.1); RED CELL DISTRIBUTION WIDTH 15.9 % (11.6-14.6)
[2022-05-01 03:42] LABS: CHLORIDE 107 mEq/L (98-107)
[2022-05-01] MEDS ORDERED: ASPIRIN 325MG TABLET PO ONE (05:30)
[2022-05-01] MEDS ORDERED: FUROSEMIDE 40MG/4ML VIAL IVP ONE (05:30)
[2022-05-01] MEDS ORDERED: CLONIDINE 0.1MG TABLET PO PRN (07:45)
[2022-05-01] MEDS ORDERED: ACETAMINOPHEN 325MG TABLET PO PRN ×2 (07:45)
[2022-05-01] MEDS ORDERED: GUAIFENESIN 200MG/10ML SUGAR FREE UDC PO PRN (07:45)
[2022-05-01] MEDS ORDERED: IPRATROPIUM/ALBUTEROL 0.5-3(2.5)MG/3ML NEB NEB PRN (07:45)
[2022-05-01] MEDS ORDERED: PREDNISONE 20MG TABLET PO SCH (09:00)
[2022-05-01] MEDS: CLOPIDOGREL 75MG TABLET PO SCH (09:15)
[2022-05-01] MEDS: ENOXAPARIN 40MG/0.4ML SYR SUBCUT SCH (09:16)
[2022-05-01 09:30] LABS: BG BASE EXCESS -4.9 mmol/L (-2.0-2.0); BG CARBOXYHEMOGLOBIN 2.5 % (0.5-1.5); BG DEOXYHEMOGLOBIN 5.3 % (0.0-5.0); BG FRACTION INSPIRED OXYGEN 40; BG HCO3 ACT 18.9 mmol/L (22.0-26.0); BG METHEMOGLOBIN 0.2 % (0.0-1.5); BG OXYGEN SATURATION 94.6 % (92.0-98.5); BG PCO2 31.2 mmHg (35.0-45.0); BG PO2 70.1 mmHg (75.0-100.0); BG SAMPLE SITE RIGHT RADIAL; BG TOTAL HEMOGLOBIN 11.7 g/dL (12.0-18.0); BG VENT MODE NASAL CANNULA
[2022-05-01] MEDS: PANTOPRAZOLE SODIUM 40 MG/VIAL IV SCH (11:30)
[2022-05-01] MEDS ORDERED: IPRATROPIUM/ALBUTEROL 0.5-3(2.5)MG/3ML NEB NEB SCH (12:00)
[2022-05-01 13:50] VITALS: BP 110/44
[2022-05-01] MEDS ORDERED: FUROSEMIDE 40MG/4ML VIAL IVP NR (14:15)
[2022-05-01] MEDS: DOXYCYCLINE HYCLATE 100MG CAPSULE PO SCH (14:22)
[2022-05-01] MEDS ORDERED: IPRATROPIUM BROMIDE (0.02%) 0.5MG/2.5ML NEB HHN PRN (15:00)
[2022-05-01] MEDS ORDERED: ALBUTEROL (0.083%) 2.5MG/3ML NEB HHN PRN (15:00)
[2022-05-01] MEDS: METHYLPREDNISOLONE SOD SUCC 40 MG/ML VIAL IV SCH ×2 (15:11→22:15)
[2022-05-01 16:00] VITALS: BP 110/40
[2022-05-01 16:26] LABS: CREATINE KINASE MB FRACTION 6.8 ng/mL (0.5-3.6)
[2022-05-01 20:00] VITALS: BP 112/45
[2022-05-01] MEDS: ALBUTEROL (0.083%) 2.5MG/3ML NEB HHN SCH (20:59)
[2022-05-01] MEDS: IPRATROPIUM BROMIDE (0.02%) 0.5MG/2.5ML NEB HHN SCH (21:00)
[2022-05-01] MEDS ORDERED: SODIUM CHLORIDE 0.45% 1,000 ML IV SCH (21:00)
[2022-05-01] MEDS ORDERED: ATORVASTATIN CALCIUM 40MG TABLET PO SCH (21:00)
[2022-05-01] MEDS: GUAIFENESIN/CODEINE 200-20MG/10ML UDC PO PRN (21:21)
[2022-05-02] VITALS (24 sets, daily range): BP systolic 85–133; BP diastolic 27–92
[2022-05-02 00:05] LABS: CREATINE KINASE MB FRACTION 5.4 ng/mL (0.5-3.6)
[2022-05-02] MEDS: ALBUTEROL (0.083%) 2.5MG/3ML NEB HHN SCH ×5 (00:33→20:12)
[2022-05-02] MEDS: IPRATROPIUM BROMIDE (0.02%) 0.5MG/2.5ML NEB HHN SCH ×5 (00:33→20:12)
[2022-05-02] MEDS: ALPRAZOLAM 0.5 MG TABLET PO PRN (00:54)
[2022-05-02] MEDS: DOXYCYCLINE HYCLATE 100MG CAPSULE PO SCH ×2 (06:35→18:03)
[2022-05-02] MEDS: METHYLPREDNISOLONE SOD SUCC 40 MG/ML VIAL IV SCH ×3 (06:35→23:48)
[2022-05-02 07:26] LABS: HEMATOCRIT 32.7 % (42.0-52.0); MEAN CORPUSCULAR HEMOGLOBIN 29.3 pg (28.0-32.0); MEAN CORPUSCULAR VOLUME 87.3 fL (80.0-94.0); PLATELET 226 x1000/uL (130-400); RED BLOOD CELL COUNT 3.74 mill/uL (4.7-6.1); RED CELL DISTRIBUTION WIDTH 15.4 % (11.6-14.6)
[2022-05-02 07:35] LABS: CHLORIDE 105 mEq/L (98-107)
[2022-05-02 07:46] LABS: PHOSPHORUS 5.7 mg/dL (2.5-4.9)
[2022-05-02] MEDS ORDERED: CEFTRIAXONE 1 G PREMIX 50 ML IV SCH (09:00)
[2022-05-02] MEDS: ASPIRIN 81MG EC TABLET PO SCH (09:02)
[2022-05-02] MEDS: ENOXAPARIN 40MG/0.4ML SYR SUBCUT SCH (09:02)
[2022-05-02] MEDS: CLOPIDOGREL 75MG TABLET PO SCH (09:02)
[2022-05-02 09:44] LABS: BG BASE EXCESS -5.5 mmol/L (-2.0-2.0); BG CARBOXYHEMOGLOBIN 0.8 % (0.5-1.5); BG DEOXYHEMOGLOBIN 8.4 % (0.0-5.0); BG FRACTION INSPIRED OXYGEN 30; BG HCO3 ACT 17.3 mmol/L (22.0-26.0); BG METHEMOGLOBIN 0.2 % (0.0-1.5); BG OXYGEN SATURATION 91.5 % (92.0-98.5); BG OXYHEMOGLOBIN 90.6 % (94.0-97.0); BG PCO2 26.2 mmHg (35.0-45.0); BG PH 7.437 (7.350-7.450); BG PO2 64.7 mmHg (75.0-100.0); BG SAMPLE SITE RIGHT RADIAL; BG TOTAL HEMOGLOBIN 11.8 g/dL (12.0-18.0); BG VENT MODE NASAL CANNULA
[2022-05-02] MEDS ORDERED: SODIUM POLYSTYRENE SULFONATE 15 G/60 ML BOT PO NR (10:00)
[2022-05-02] MEDS: CEFTRIAXONE 1,000 MG in DEXTROSE 5% WATER 50 ML IV SCH (11:57)
[2022-05-02] MEDS: SODIUM CHLORIDE 0.9% 1,000 ML IV SCH ×2 (14:16→23:48)
[2022-05-02] MEDS ORDERED: FUROSEMIDE 20MG/2ML VIAL IVP NR (15:45)
[2022-05-02] MEDS: FLUCONAZOLE 100MG TABLET PO SCH (15:47)
[2022-05-02 17:37] LABS: CLARITY URINE CLEAR (CLEAR); COLOR URINE YELLOW (YELLOW); KETONES URINE NEGATIVE (NEGATIVE); LEUKOCYTE ESTERASE URINE NEGATIVE (NEGATIVE); NITRITE URINE NEGATIVE (NEGATIVE); OCCULT BLOOD URINE NEGATIVE (NEGATIVE); PROTEIN URINE NEGATIVE (NEGATIVE); SPECIFIC GRAVITY URINE 1.024 (1.005-1.030); UROBILINOGEN URINE 0.2 E.U./dL (0.2-1.0)
[2022-05-02 18:02] LABS: *AMPHETAMINES SCREEN URINE NEGATIVE (NEGATIVE); *BARBITURATES SCREEN URINE NEGATIVE (NEGATIVE); *BENZODIAZEPINES SCREEN URINE PRESUMTIVE POSITIVE (NEGATIVE); *COCAINE SCREEN URINE NEGATIVE (NEGATIVE); CANNABINOID URINE SCREEN NEGATIVE (NEGATIVE); METHADONE URINE SCREEN NEGATIVE (NEGATIVE); OPIATES URINE SCREEN PRESUMTIVE POSITIVE (NEGATIVE); PHENCYCLIDINE URINE SCREEN NEGATIVE (NEGATIVE)
[2022-05-03] VITALS (11 sets, daily range): BP systolic 112–155; BP diastolic 50–62
[2022-05-03] MEDS: ALBUTEROL (0.083%) 2.5MG/3ML NEB HHN SCH ×4 (01:20→21:02)
[2022-05-03] MEDS: IPRATROPIUM BROMIDE (0.02%) 0.5MG/2.5ML NEB HHN SCH ×4 (01:20→21:02)
[2022-05-03] MEDS ORDERED: SODIUM CHLORIDE 0.9% 1,000 ML IV SCH (02:36)
[2022-05-03] MEDS: DOXYCYCLINE HYCLATE 100MG CAPSULE PO SCH ×2 (05:02→18:20)
[2022-05-03 05:58] LABS: CHLORIDE 109 mEq/L (98-107)
[2022-05-03] MEDS: METHYLPREDNISOLONE SOD SUCC 40 MG/ML VIAL IV SCH ×3 (06:02→22:00)
[2022-05-03 06:26] LABS: PHOSPHORUS 5.4 mg/dL (2.5-4.9)
[2022-05-03 08:28] LABS: HEMATOCRIT 32.7 % (42.0-52.0); HEMOGLOBIN 10.6 g/dL (14.0-18.0); MEAN CORPUSCULAR HEMOGLOBIN 28.2 pg (28.0-32.0); PLATELET 204 x1000/uL (130-400); RED BLOOD CELL COUNT 3.76 mill/uL (4.7-6.1); RED CELL DISTRIBUTION WIDTH 16.3 % (11.6-14.6)
[2022-05-03] MEDS ORDERED: SODIUM CHLORIDE 10% FOR INH 15ML VIAL NEB INH SCH (09:00)
[2022-05-03] MEDS: ASPIRIN 81MG EC TABLET PO SCH (09:12)
[2022-05-03] MEDS: CLOPIDOGREL 75MG TABLET PO SCH (09:12)
[2022-05-03] MEDS: ENOXAPARIN 40MG/0.4ML SYR SUBCUT SCH (09:12)
[2022-05-03] MEDS: PANTOPRAZOLE SODIUM 40 MG/VIAL IV SCH (09:12)
[2022-05-03] MEDS: CEFTRIAXONE 1,000 MG in DEXTROSE 5% WATER 50 ML IV SCH (13:43)
[2022-05-03] MEDS: AMLODIPINE 2.5MG TABLET PO SCH ×2 (13:43→21:55)
[2022-05-03] MEDS: FLUCONAZOLE 100MG TABLET PO SCH (16:09)
[2022-05-03] MEDS ORDERED: ISOSORBIDE MONONITRATE 30MG TABLET SR 24HR PO SCH (17:00)
[2022-05-03] MEDS: SODIUM CHLORIDE 0.45% 1,000 ML IV SCH (18:21)
[2022-05-04] VITALS (12 sets, daily range): BP systolic 116–137; BP diastolic 50–64
[2022-05-04] MEDS: IPRATROPIUM BROMIDE (0.02%) 0.5MG/2.5ML NEB HHN SCH ×3 (02:26→20:49)
[2022-05-04] MEDS: ALBUTEROL (0.083%) 2.5MG/3ML NEB HHN SCH ×3 (02:26→20:49)
[2022-05-04 05:26] LABS: HEMATOCRIT 30.6 % (42.0-52.0); HEMOGLOBIN 10.2 g/dL (14.0-18.0); MEAN CORPUSCULAR HEMOGLOBIN 29.2 pg (28.0-32.0); MEAN CORPUSCULAR VOLUME 87.3 fL (80.0-94.0); PLATELET 147 x1000/uL (130-400); RED CELL DISTRIBUTION WIDTH 16.6 % (11.6-14.6)
[2022-05-04] MEDS: DOXYCYCLINE HYCLATE 100MG CAPSULE PO SCH ×2 (05:26→17:09)
[2022-05-04 05:40] LABS: CHLORIDE 108 mEq/L (98-107)
[2022-05-04] MEDS: ENOXAPARIN 40MG/0.4ML SYR SUBCUT SCH (07:45)
[2022-05-04] MEDS: METHYLPREDNISOLONE SOD SUCC 40 MG/ML VIAL IV SCH ×3 (07:45→22:16)
[2022-05-04] MEDS: ASPIRIN 81MG EC TABLET PO SCH (08:04)
[2022-05-04] MEDS: CLOPIDOGREL 75MG TABLET PO SCH (08:04)
[2022-05-04] MEDS: AMLODIPINE 2.5MG TABLET PO SCH (08:04)
[2022-05-04] MEDS: FAMOTIDINE 20MG/2ML VIAL IV SCH ×2 (08:04→22:16)
[2022-05-04] MEDS: SODIUM CHLORIDE 0.45% 1,000 ML IV SCH (09:53)
[2022-05-04] MEDS: CEFTRIAXONE 1,000 MG in DEXTROSE 5% WATER 50 ML IV SCH (10:01)
[2022-05-04] MEDS ORDERED: FUROSEMIDE 40MG TABLET PO NR (13:00)
[2022-05-04] MEDS: ALPRAZOLAM 0.5 MG TABLET PO PRN ×2 (13:31→19:33)
[2022-05-04] MEDS: FLUCONAZOLE 100MG TABLET PO SCH (14:58)
[2022-05-04 15:50] LABS: BG BASE EXCESS -5.6 mmol/L (-2.0-2.0); BG CARBOXYHEMOGLOBIN 0.3 % (0.5-1.5); BG DEOXYHEMOGLOBIN 5.4 % (0.0-5.0); BG HCO3 ACT 17.7 mmol/L (22.0-26.0); BG METHEMOGLOBIN 0.2 % (0.0-1.5); BG OXYGEN SATURATION 94.6 % (92.0-98.5); BG OXYHEMOGLOBIN 94.1 % (94.0-97.0); BG PCO2 27.9 mmHg (35.0-45.0); BG PO2 77.5 mmHg (75.0-100.0); BG SAMPLE SITE RIGHT BRACHIAL; BG TOTAL HEMOGLOBIN 11.2 g/dL (12.0-18.0); BG VENT MODE MASK - SIMPLE
[2022-05-04] MEDS: ISOSORBIDE MONONITRATE 30MG TABLET SR 24HR PO SCH (16:40)
[2022-05-04] MEDS ORDERED: FUROSEMIDE 20MG/2ML VIAL IVP NR (18:00)
[2022-05-04] MEDS: AMLODIPINE 5MG TABLET PO SCH ×2 (22:17→22:22)
[2022-05-05] VITALS (10 sets, daily range): BP systolic 112–130; BP diastolic 52–78
[2022-05-05] MEDS: ALBUTEROL (0.083%) 2.5MG/3ML NEB HHN SCH ×4 (02:40→20:58)
[2022-05-05] MEDS: IPRATROPIUM BROMIDE (0.02%) 0.5MG/2.5ML NEB HHN SCH ×4 (02:40→20:58)
[2022-05-05] MEDS: SODIUM CHLORIDE 0.45% 1,000 ML IV SCH (03:20)
[2022-05-05] MEDS: DOXYCYCLINE HYCLATE 100MG CAPSULE PO SCH ×2 (06:40→17:26)
[2022-05-05 08:08] LABS: HEMATOCRIT. 31.2 % (42.0-52.0); HEMOGLOBIN. 10.2 g/dL (14.0-18.0); MEAN CORPUSCULAR HEMOGLOBIN 29.2 pg (28.0-32.0); MEAN CORPUSCULAR VOLUME 89.4 fL (80.0-94.0); MEAN PLATELET VOLUME 8.5 fl (7.4-10.4); PLATELET 128 x1000/uL (130-400); RED BLOOD CELL COUNT 3.49 mill/uL (4.7-6.1); RED CELL DISTRIBUTION WIDTH 16.9 % (11.6-14.6)
[2022-05-05] MEDS: CLOPIDOGREL 75MG TABLET PO SCH (08:35)
[2022-05-05] MEDS: ASPIRIN 81MG EC TABLET PO SCH (08:35)
[2022-05-05] MEDS: ENOXAPARIN 40MG/0.4ML SYR SUBCUT SCH (08:35)
[2022-05-05] MEDS: METHYLPREDNISOLONE SOD SUCC 40 MG/ML VIAL IV SCH (08:35)
[2022-05-05] MEDS: FAMOTIDINE 20MG/2ML VIAL IV SCH ×2 (08:59→22:02)
[2022-05-05 10:51] LABS: BG CARBOXYHEMOGLOBIN 0.4 % (0.5-1.5); BG DEOXYHEMOGLOBIN 3.3 % (0.0-5.0); BG FRACTION INSPIRED OXYGEN 44; BG HCO3 ACT 17.5 mmol/L (22.0-26.0); BG METHEMOGLOBIN 0.2 % (0.0-1.5); BG OXYGEN SATURATION 96.7 % (92.0-98.5); BG OXYHEMOGLOBIN 96.1 % (94.0-97.0); BG PCO2 28.3 mmHg (35.0-45.0); BG PO2 90.8 mmHg (75.0-100.0); BG SAMPLE SITE RIGHT BRACHIAL; BG TOTAL HEMOGLOBIN 10.8 g/dL (12.0-18.0); BG VENT MODE NASAL CANNULA
[2022-05-05] MEDS: CEFTRIAXONE 1,000 MG in DEXTROSE 5% WATER 50 ML IV SCH (11:30)
[2022-05-05] MEDS ORDERED: FUROSEMIDE 20MG TABLET PO NR (14:11)
[2022-05-05] MEDS: FLUCONAZOLE 100MG TABLET PO SCH (15:10)
[2022-05-05] MEDS: ISOSORBIDE MONONITRATE 30MG TABLET SR 24HR PO SCH (17:26)
[2022-05-05] MEDS: AMLODIPINE 5MG TABLET PO SCH (17:27)
[2022-05-05] MEDS: ALPRAZOLAM 0.5 MG TABLET PO PRN (22:03)
[2022-05-05] MEDS: METHYLPREDNISOLONE SOD SUCC 125 MG/2 ML VIAL IV SCH (22:03)
[2022-05-06] VITALS (11 sets, daily range): BP systolic 102–129; BP diastolic 50–72
[2022-05-06] MEDS: IPRATROPIUM BROMIDE (0.02%) 0.5MG/2.5ML NEB HHN SCH ×4 (01:06→20:05)
[2022-05-06] MEDS: ALBUTEROL (0.083%) 2.5MG/3ML NEB HHN SCH ×4 (01:06→20:08)
[2022-05-06] MEDS: AMLODIPINE 5MG TABLET PO SCH ×3 (01:17→17:33)
[2022-05-06 01:20] LABS: PLATELET ESTIMATE DECREASED
[2022-05-06 04:16] LABS: HEMOGLOBIN 10.2 g/dL (14.0-18.0); MEAN CORPUSCULAR HEMOGLOBIN 28.8 pg (28.0-32.0); PLATELET 106 x1000/uL (130-400); RED BLOOD CELL COUNT 3.52 mill/uL (4.7-6.1); RED CELL DISTRIBUTION WIDTH 16.8 % (11.6-14.6)
[2022-05-06 04:22] LABS: CHLORIDE 106 mEq/L (98-107)
[2022-05-06] MEDS: METHYLPREDNISOLONE SOD SUCC 125 MG/2 ML VIAL IV SCH ×3 (06:28→20:31)
[2022-05-06] MEDS: DOXYCYCLINE HYCLATE 100MG CAPSULE PO SCH (06:28)
[2022-05-06] MEDS: NITROGLYCERIN OINT 1GM/INCH UDPKT TD SCH ×3 (06:29→17:31)
[2022-05-06] MEDS: ASPIRIN 81MG EC TABLET PO SCH (08:54)
[2022-05-06] MEDS: ENOXAPARIN 40MG/0.4ML SYR SUBCUT SCH (08:54)
[2022-05-06] MEDS: CLOPIDOGREL 75MG TABLET PO SCH (08:54)
[2022-05-06 10:08] LABS: QFT MITOGEN VALUE 0.54 IU/mL (.); QFT TB GOLD PLUS Negative (Negative)
[2022-05-06] MEDS: NEOMYCIN-POLYMYXIN B-HYDROCORTISONE 1% OTIC SOLN 10ML RIGHT EAR SCH ×2 (12:46→17:32)
[2022-05-06] MEDS: FAMOTIDINE 20MG/2ML VIAL IV SCH (13:46)
[2022-05-06] MEDS: CEFTRIAXONE 1,000 MG in DEXTROSE 5% WATER 50 ML IV SCH (13:46)
[2022-05-06] MEDS: FLUCONAZOLE 100MG TABLET PO SCH (15:43)
[2022-05-06] MEDS: HYDRALAZINE HCL 10MG TABLET PO SCH ×2 (17:33→20:31)
[2022-05-06] MEDS: ISOSORBIDE MONONITRATE 30MG TABLET SR 24HR PO SCH (17:34)
[2022-05-06 22:16] LABS: SODIUM URINE RANDOM < 5 mEq/L
[2022-05-07] VITALS (33 sets, daily range): BP systolic 100–137; BP diastolic 49–61
[2022-05-07] MEDS: AMLODIPINE 5MG TABLET PO SCH ×3 (00:40→17:00)
[2022-05-07] MEDS: NEOMYCIN-POLYMYXIN B-HYDROCORTISONE 1% OTIC SOLN 10ML RIGHT EAR SCH ×3 (00:40→12:25)
[2022-05-07] MEDS: NITROGLYCERIN OINT 1GM/INCH UDPKT TD SCH ×4 (00:40→18:00)
[2022-05-07] MEDS: IPRATROPIUM BROMIDE (0.02%) 0.5MG/2.5ML NEB HHN SCH ×3 (01:48→14:20)
[2022-05-07] MEDS: ALBUTEROL (0.083%) 2.5MG/3ML NEB HHN SCH ×3 (01:48→14:20)
[2022-05-07 04:27] LABS: HEMATOCRIT 30.7 % (42.0-52.0); HEMOGLOBIN 10.2 g/dL (14.0-18.0); MEAN CORPUSCULAR HEMOGLOBIN 29.2 pg (28.0-32.0); MEAN CORPUSCULAR VOLUME 88.3 fL (80.0-94.0); PLATELET 102 x1000/uL (130-400); RED BLOOD CELL COUNT 3.47 mill/uL (4.7-6.1); RED CELL DISTRIBUTION WIDTH 17.1 % (11.6-14.6)
[2022-05-07] MEDS: HYDRALAZINE HCL 10MG TABLET PO SCH (05:01)
[2022-05-07] MEDS: METHYLPREDNISOLONE SOD SUCC 125 MG/2 ML VIAL IV SCH ×3 (05:01→21:43)
[2022-05-07 10:25] LABS: BG BASE EXCESS -5.6 mmol/L (-2.0-2.0); BG CARBOXYHEMOGLOBIN 0.7 % (0.5-1.5); BG DEOXYHEMOGLOBIN 7.7 % (0.0-5.0); BG FRACTION INSPIRED OXYGEN 32; BG HCO3 ACT 17.5 mmol/L (22.0-26.0); BG METHEMOGLOBIN 0.3 % (0.0-1.5); BG OXYGEN SATURATION 92.2 % (92.0-98.5); BG OXYHEMOGLOBIN 91.3 % (94.0-97.0); BG PCO2 27.2 mmHg (35.0-45.0); BG PH 7.427 (7.350-7.450); BG PO2 69.4 mmHg (75.0-100.0); BG SAMPLE SITE RIGHT RADIAL; BG TOTAL HEMOGLOBIN 11.3 g/dL (12.0-18.0); BG VENT MODE NASAL CANNULA
[2022-05-07] MEDS: ASPIRIN 81MG EC TABLET PO SCH (12:12)
[2022-05-07] MEDS: FAMOTIDINE 20MG/2ML VIAL IV SCH (12:12)
[2022-05-07] MEDS: CLOPIDOGREL 75MG TABLET PO SCH (12:12)
[2022-05-07] MEDS: ENOXAPARIN 40MG/0.4ML SYR SUBCUT SCH (12:13)
[2022-05-07] MEDS: FLUCONAZOLE 100MG TABLET PO SCH (15:00)
[2022-05-07] MEDS: ISOSORBIDE MONONITRATE 30MG TABLET SR 24HR PO SCH (17:00)
[2022-05-07] MEDS: DOBUTAMINE 250MG PREMIX 250 ML IV SCH (18:47)
[2022-05-07] MEDS: HYDRALAZINE HCL 25MG TABLET PO SCH (21:43)
[2022-05-07] MEDS ORDERED: SODIUM CHLORIDE 0.45% 1,000 ML IV SCH (23:15)
[2022-05-08] VITALS (102 sets, daily range): BP systolic 86–164; BP diastolic 41–98
[2022-05-08] MEDS: AMLODIPINE 5MG TABLET PO SCH ×4 (00:06→22:57)
[2022-05-08] MEDS: NITROGLYCERIN OINT 1GM/INCH UDPKT TD SCH ×5 (00:06→22:56)
[2022-05-08] MEDS: METHYLPREDNISOLONE SOD SUCC 125 MG/2 ML VIAL IV SCH (06:16)
[2022-05-08] MEDS: HYDRALAZINE HCL 25MG TABLET PO SCH ×3 (06:17→21:29)
[2022-05-08] MEDS: NEOMYCIN-POLYMYXIN B-HYDROCORTISONE 1% OTIC SOLN 10ML RIGHT EAR SCH ×5 (06:18→22:55)
[2022-05-08 07:23] LABS: HEMATOCRIT. 30.9 % (42.0-52.0); HEMOGLOBIN. 10.1 g/dL (14.0-18.0); MEAN CORPUSCULAR HEMOGLOBIN 29.5 pg (28.0-32.0); MEAN CORPUSCULAR VOLUME 90.5 fL (80.0-94.0); MEAN PLATELET VOLUME 9.6 fl (7.4-10.4); PLATELET 81 x1000/uL (130-400); RED BLOOD CELL COUNT 3.41 mill/uL (4.7-6.1)
[2022-05-08] MEDS: CLOPIDOGREL 75MG TABLET PO SCH (09:24)
[2022-05-08] MEDS: ASPIRIN 81MG EC TABLET PO SCH (09:24)
[2022-05-08] MEDS: FAMOTIDINE 20MG/2ML VIAL IV SCH (09:28)
[2022-05-08] MEDS: ENOXAPARIN 40MG/0.4ML SYR SUBCUT SCH (09:28)
[2022-05-08 09:50] LABS: PLATELET ESTIMATE SLIGHTLY DECREASED
[2022-05-08 10:06] LABS: ANTI-NUCLEAR ANTIBODIES DIRECT Negative (Negative)
[2022-05-08] MEDS ORDERED: PROPOFOL 10MG/ML 100ML 100 ML IV PRN (10:45)
[2022-05-08] MEDS: GUAIFENESIN/CODEINE 200-20MG/10ML UDC PO PRN (13:37)
[2022-05-08] MEDS: FUROSEMIDE 20MG TABLET PO SCH (13:37)
[2022-05-08] MEDS: METHYLPREDNISOLONE SOD SUCC 40 MG/ML VIAL IV SCH ×2 (13:43→21:27)
[2022-05-08] MEDS: FLUCONAZOLE 100MG TABLET PO SCH (14:14)
[2022-05-08] MEDS: DOBUTAMINE 250MG PREMIX 250 ML IV SCH ×2 (15:49→21:27)
[2022-05-08] MEDS: FENTANYL 2500MCG/250ML PMX 250 ML IV PRN (17:17)
[2022-05-08] MEDS: PROPOFOL 10MG/ML 100ML 100 ML IV PRN ×2 (17:18→21:29)
[2022-05-08] MEDS ORDERED: FUROSEMIDE 20MG/2ML VIAL IVP NR (17:45)
[2022-05-08] MEDS: ISOSORBIDE MONONITRATE 30MG TABLET SR 24HR PO SCH (17:59)
[2022-05-08 18:05] LABS: BG BASE EXCESS -6.8 mmol/L (-2.0-2.0); BG CARBOXYHEMOGLOBIN 0.3 % (0.5-1.5); BG DEOXYHEMOGLOBIN 2.3 % (0.0-5.0); BG HCO3 ACT 21.7 mmol/L (22.0-26.0); BG METHEMOGLOBIN 0.5 % (0.0-1.5); BG OXYGEN SATURATION 97.7 % (92.0-98.5); BG OXYHEMOGLOBIN 96.9 % (94.0-97.0); BG PCO2 57.6 mmHg (35.0-45.0); BG PH 7.194 (7.350-7.450); BG PO2 137.3 mmHg (75.0-100.0); BG SAMPLE SITE RIGHT RADIAL; BG TOTAL HEMOGLOBIN 11.7 g/dL (12.0-18.0); BG VENT MODE VENT - AC
[2022-05-08] MEDS: IPRATROPIUM BROMIDE (0.02%) 0.5MG/2.5ML NEB HHN SCH (19:59)
[2022-05-08] MEDS: ALBUTEROL (0.083%) 2.5MG/3ML NEB HHN SCH (20:00)
[2022-05-08 20:32] LABS: BG BASE EXCESS -4.5 mmol/L (-2.0-2.0); BG CARBOXYHEMOGLOBIN 0.4 % (0.5-1.5); BG DEOXYHEMOGLOBIN 1.4 % (0.0-5.0); BG FRACTION INSPIRED OXYGEN 50; BG HCO3 ACT 22.3 mmol/L (22.0-26.0); BG METHEMOGLOBIN 0.5 % (0.0-1.5); BG OXYGEN SATURATION 98.6 % (92.0-98.5); BG OXYHEMOGLOBIN 97.7 % (94.0-97.0); BG PH 7.276 (7.350-7.450); BG PO2 163.9 mmHg (75.0-100.0); BG SAMPLE SITE RIGHT RADIAL; BG TOTAL HEMOGLOBIN 10.7 g/dL (12.0-18.0); BG TOTAL RESPIRATORY RATE 28 b/min; BG VENT MODE VENT - AC
[2022-05-08] MEDS: NOREPINEPHRINE 8 MG in DEXT 5% WATER 242 ML IV PRN (23:54)
[2022-05-09] VITALS (98 sets, daily range): BP systolic 90–125; BP diastolic 40–58
[2022-05-09] MEDS: ALBUTEROL (0.083%) 2.5MG/3ML NEB HHN SCH ×5 (01:59→21:45)
[2022-05-09] MEDS: IPRATROPIUM BROMIDE (0.02%) 0.5MG/2.5ML NEB HHN SCH ×5 (01:59→21:45)
[2022-05-09] MEDS: PROPOFOL 10MG/ML 100ML 100 ML IV PRN (02:53)
[2022-05-09] MEDS: METHYLPREDNISOLONE SOD SUCC 40 MG/ML VIAL IV SCH ×3 (05:17→21:34)
[2022-05-09] MEDS: HYDRALAZINE HCL 25MG TABLET PO SCH ×3 (05:18→21:35)
[2022-05-09] MEDS: NEOMYCIN-POLYMYXIN B-HYDROCORTISONE 1% OTIC SOLN 10ML RIGHT EAR SCH ×4 (05:18→23:17)
[2022-05-09] MEDS: NITROGLYCERIN OINT 1GM/INCH UDPKT TD SCH ×3 (05:18→17:17)
[2022-05-09 06:34] LABS: HEMATOCRIT. 28.9 % (42.0-52.0); HEMOGLOBIN. 9.4 g/dL (14.0-18.0); MEAN CORPUSCULAR VOLUME 91.9 fL (80.0-94.0); MEAN PLATELET VOLUME 9.4 fl (7.4-10.4); PLATELET 72 x1000/uL (130-400); RED BLOOD CELL COUNT 3.14 mill/uL (4.7-6.1); RED CELL DISTRIBUTION WIDTH 16.9 % (11.6-14.6)
[2022-05-09 07:39] LABS: PHOSPHORUS 8.4 mg/dL (2.5-4.9)
[2022-05-09] MEDS: AMLODIPINE 5MG TABLET PO SCH ×2 (08:46→16:28)
[2022-05-09] MEDS: FAMOTIDINE 20MG/2ML VIAL IV SCH (08:53)
[2022-05-09] MEDS: FUROSEMIDE 20MG TABLET PO SCH (08:53)
[2022-05-09 08:54] LABS: BG BASE EXCESS -5.1 mmol/L (-2.0-2.0); BG CARBOXYHEMOGLOBIN 0.3 % (0.5-1.5); BG DEOXYHEMOGLOBIN 1.9 % (0.0-5.0); BG FRACTION INSPIRED OXYGEN 40; BG HCO3 ACT 21.6 mmol/L (22.0-26.0); BG OXYGEN SATURATION 98.1 % (92.0-98.5); BG OXYHEMOGLOBIN 97.8 % (94.0-97.0); BG PCO2 47.4 mmHg (35.0-45.0); BG PH 7.277 (7.350-7.450); BG PO2 135.7 mmHg (75.0-100.0); BG SAMPLE SITE RIGHT RADIAL; BG TOTAL HEMOGLOBIN 10.6 g/dL (12.0-18.0); BG VENT MODE VENT - AC
[2022-05-09] MEDS ORDERED: DEXTROSE 50% WATER 50ML SYRINGE IV SCH (09:00)
[2022-05-09] MEDS ORDERED: INSULIN REGULAR (HUMULIN R) 300UNITS/3ML VIAL IV SCH (09:00)
[2022-05-09] MEDS ORDERED: MIDAZOLAM 100MG/100ML PMX 100 ML IV PRN (09:15)
[2022-05-09] MEDS ORDERED: SODIUM POLYSTYRENE SULFONATE 15 G/60 ML BOT PO SCH (09:30)
[2022-05-09] MEDS: CALCIUM 1250MG TABLET (500MG ELEMENTAL CALCIUM) PO SCH ×3 (09:36→17:49)
[2022-05-09] MEDS: MIDAZOLAM HCL 100 MG in SODIUM CHLORIDE 0.9% 100 ML IV PRN (10:53)
[2022-05-09 13:06] LABS: ATYPICAL P-ANCA <1:20 titer (Neg:<1:20); CYTOPLASMIC C-ANCA <1:20 titer (Neg:<1:20); PERINUCLEAR P-ANCA <1:20 titer (Neg:<1:20)
[2022-05-09] MEDS ORDERED: SODIUM CHLORIDE 0.9% 1,000 ML IV ONE (14:15)
[2022-05-09] MEDS: CEFEPIME 2,000 MG in DEXT 5% WATER 100 ML IV SCH (15:22)
[2022-05-09] MEDS: NOREPINEPHRINE 8 MG in DEXT 5% WATER 242 ML IV PRN (15:23)
[2022-05-09] MEDS: ISOSORBIDE MONONITRATE 30MG TABLET SR 24HR PO SCH (16:28)
[2022-05-09 16:29] LABS: PLATELET ESTIMATE DECREASED
[2022-05-09] MEDS: FENTANYL 2500MCG/250ML PMX 250 ML IV PRN (16:31)
[2022-05-09 19:09] LABS: ANTI-MYELOPEROXIDASE AB < 0.2 units (0.0-0.9); ANTI-PROTEINASE 3 ABS < 0.2 units (0.0-0.9)
[2022-05-09] MEDS: SODIUM CHLORIDE 0.45% 1,000 ML IV SCH (23:17)
[2022-05-10] VITALS (95 sets, daily range): BP systolic 91–124; BP diastolic 42–92
[2022-05-10] MEDS: AMLODIPINE 5MG TABLET PO SCH ×3 (00:07→16:58)
[2022-05-10] MEDS: NITROGLYCERIN OINT 1GM/INCH UDPKT TD SCH ×4 (00:13→17:05)
[2022-05-10] MEDS: MIDAZOLAM HCL 100 MG in SODIUM CHLORIDE 0.9% 100 ML IV PRN (04:07)
[2022-05-10] MEDS: NOREPINEPHRINE 8 MG in DEXT 5% WATER 242 ML IV PRN (04:39)
[2022-05-10] MEDS: METHYLPREDNISOLONE SOD SUCC 40 MG/ML VIAL IV SCH ×3 (05:20→22:50)
[2022-05-10] MEDS: HYDRALAZINE HCL 25MG TABLET PO SCH ×3 (05:20→22:00)
[2022-05-10] MEDS: NEOMYCIN-POLYMYXIN B-HYDROCORTISONE 1% OTIC SOLN 10ML RIGHT EAR SCH ×3 (05:20→17:05)
[2022-05-10 05:42] LABS: HEMATOCRIT. 27.8 % (42.0-52.0); MEAN CORPUSCULAR HEMOGLOBIN 29.4 pg (28.0-32.0); MEAN CORPUSCULAR VOLUME 91.3 fL (80.0-94.0); MEAN PLATELET VOLUME 10.6 fl (7.4-10.4); PLATELET 69 x1000/uL (130-400); RED BLOOD CELL COUNT 3.04 mill/uL (4.7-6.1)
[2022-05-10 05:57] LABS: PHOSPHORUS 6.9 mg/dL (2.5-4.9)
[2022-05-10] MEDS ORDERED: LIDOCAINE HCL 1% 20ML VIAL (Pyxis) INJ INFIL SCH (08:00)
[2022-05-10] MEDS ORDERED: FENTANYL CITRATE/PF 50MCG/ML 2ML VIAL IV SCH (08:00)
[2022-05-10] MEDS ORDERED: MIDAZOLAM HCL 2 MG/2 ML VIAL IV SCH (08:00)
[2022-05-10] MEDS ORDERED: VISCOUS LIDOCAINE 2% 15 ML UDC MM SCH (08:00)
[2022-05-10] MEDS: ALBUTEROL (0.083%) 2.5MG/3ML NEB HHN SCH ×2 (08:42→14:32)
[2022-05-10] MEDS: IPRATROPIUM BROMIDE (0.02%) 0.5MG/2.5ML NEB HHN SCH ×2 (08:42→14:31)
[2022-05-10] MEDS: CALCIUM 1250MG TABLET (500MG ELEMENTAL CALCIUM) PO SCH ×3 (08:42→17:04)
[2022-05-10] MEDS: FAMOTIDINE 20MG/2ML VIAL IV SCH (08:51)
[2022-05-10 08:55] LABS: BG CARBOXYHEMOGLOBIN 0.8 % (0.5-1.5); BG DEOXYHEMOGLOBIN 1.7 % (0.0-5.0); BG FRACTION INSPIRED OXYGEN 30; BG HCO3 ACT 20.2 mmol/L (22.0-26.0); BG METHEMOGLOBIN 0.3 % (0.0-1.5); BG OXYGEN SATURATION 98.3 % (92.0-98.5); BG OXYHEMOGLOBIN 97.2 % (94.0-97.0); BG PCO2 37.7 mmHg (35.0-45.0); BG PH 7.346 (7.350-7.450); BG PO2 126.6 mmHg (75.0-100.0); BG SAMPLE SITE RIGHT RADIAL; BG TOTAL HEMOGLOBIN 11.4 g/dL (12.0-18.0); BG VENT MODE VENT - AC
[2022-05-10] MEDS ORDERED: DEXTROSE 50% WATER 50ML SYRINGE IV NR ×2 (09:30→18:15)
[2022-05-10] MEDS ORDERED: SODIUM POLYSTYRENE SULFONATE 15 G/60 ML BOT PO NR ×2 (09:30→18:15)
[2022-05-10] MEDS ORDERED: INSULIN REGULAR (HUMULIN R) 300UNITS/3ML VIAL IV NR ×2 (09:30→18:15)
[2022-05-10] MEDS: SODIUM CHLORIDE 0.45% 1,000 ML IV SCH (12:11)
[2022-05-10 12:38] LABS: PLATELET ESTIMATE DECREASED
[2022-05-10] MEDS: DOBUTAMINE 250MG PREMIX 250 ML IV SCH (13:59)
[2022-05-10] MEDS: SODIUM CHLORIDE 0.9% 1,000 ML IV SCH (15:25)
[2022-05-10] MEDS: ISOSORBIDE MONONITRATE 30MG TABLET SR 24HR PO SCH (16:58)
[2022-05-10] MEDS ORDERED: FUROSEMIDE 20MG/2ML VIAL IVP NR (17:00)
[2022-05-10] MEDS: CEFEPIME 2,000 MG in DEXT 5% WATER 100 ML IV SCH (17:04)
[2022-05-10] MEDS: FENTANYL 2500MCG/250ML PMX 250 ML IV PRN (17:44)
[2022-05-10] MEDS: BUDESONIDE 0.5MG/2ML NEB HHN SCH (20:27)
[2022-05-10] MEDS ORDERED: PROPOFOL 10MG/ML 100ML 100 ML IV PRN (21:45)
[2022-05-10] MEDS ORDERED: FENTANYL 2500MCG/250ML PMX 250 ML IV PRN (21:45)
[2022-05-10] MEDS ORDERED: MIDAZOLAM 100MG/100ML PMX 100 ML IV PRN (21:45)
[2022-05-11] VITALS (88 sets, daily range): BP systolic 94–117; BP diastolic 41–53
[2022-05-11] MEDS ORDERED: DEXTROSE 50% WATER 50ML SYRINGE IV NR (00:15)
[2022-05-11] MEDS ORDERED: INSULIN REGULAR (HUMULIN R) 300UNITS/3ML VIAL IV NR (00:15)
[2022-05-11] MEDS ORDERED: SODIUM POLYSTYRENE SULFONATE 15 G/60 ML BOT PO NR ×2 (00:15→10:45)
[2022-05-11] MEDS: NITROGLYCERIN OINT 1GM/INCH UDPKT TD SCH ×4 (00:41→16:53)
[2022-05-11] MEDS: SODIUM CHLORIDE 0.9% 1,000 ML IV SCH (00:48)
[2022-05-11] MEDS: NEOMYCIN-POLYMYXIN B-HYDROCORTISONE 1% OTIC SOLN 10ML RIGHT EAR SCH ×4 (00:49→16:53)
[2022-05-11] MEDS: AMLODIPINE 5MG TABLET PO SCH ×3 (00:50→16:43)
[2022-05-11 05:27] LABS: HEMATOCRIT 26.6 % (42.0-52.0); HEMOGLOBIN 8.5 g/dL (14.0-18.0); MEAN CORPUSCULAR HEMOGLOBIN 29.1 pg (28.0-32.0); MEAN CORPUSCULAR VOLUME 90.8 fL (80.0-94.0); RED BLOOD CELL COUNT 2.93 mill/uL (4.7-6.1); RED CELL DISTRIBUTION WIDTH 17.9 % (11.6-14.6)
[2022-05-11 05:32] LABS: PLATELET 49 x1000/uL (130-400)
[2022-05-11 05:37] LABS: PHOSPHORUS 6.2 mg/dL (2.5-4.9)
[2022-05-11] MEDS: HYDRALAZINE HCL 25MG TABLET PO SCH ×3 (06:00→21:22)
[2022-05-11] MEDS: METHYLPREDNISOLONE SOD SUCC 40 MG/ML VIAL IV SCH ×3 (06:07→21:21)
[2022-05-11] MEDS: MIDAZOLAM HCL 100 MG in SODIUM CHLORIDE 0.9% 100 ML IV PRN (06:33)
[2022-05-11] MEDS: NOREPINEPHRINE 8 MG in DEXT 5% WATER 242 ML IV PRN (06:33)
[2022-05-11] MEDS: BUDESONIDE 0.5MG/2ML NEB HHN SCH ×2 (08:48→20:39)
[2022-05-11] MEDS: CALCIUM 1250MG TABLET (500MG ELEMENTAL CALCIUM) PO SCH ×3 (09:05→16:53)
[2022-05-11] MEDS: FAMOTIDINE 20MG/2ML VIAL IV SCH (09:05)
[2022-05-11] MEDS ORDERED: LIDOCAINE HCL 1% 10 MG/ML 10ML VIAL ONE (09:07)
[2022-05-11 09:15] LABS: BG CARBOXYHEMOGLOBIN 0.8 % (0.5-1.5); BG FRACTION INSPIRED OXYGEN 30; BG HCO3 ACT 20.7 mmol/L (22.0-26.0); BG METHEMOGLOBIN 0.5 % (0.0-1.5); BG OXYHEMOGLOBIN 96.7 % (94.0-97.0); BG PCO2 35.8 mmHg (35.0-45.0); BG PH 7.379 (7.350-7.450); BG PO2 124.9 mmHg (75.0-100.0); BG SAMPLE SITE RIGHT RADIAL; BG TOTAL HEMOGLOBIN 9.1 g/dL (12.0-18.0); BG VENT MODE VENT - AC
[2022-05-11] MEDS ORDERED: IRON SUCROSE COMPLEX 100 MG/5 ML ML IV NR (09:30)
[2022-05-11] MEDS ORDERED: LACTULOSE 20G/30ML UDC PO NR (10:45)
[2022-05-11] MEDS: SODIUM CHLORIDE 0.45% 1,000 ML IV SCH ×2 (11:04→21:21)
[2022-05-11] MEDS: IPRATROPIUM/ALBUTEROL 0.5-3(2.5)MG/3ML NEB HHN SCH ×3 (11:42→20:39)
[2022-05-11] MEDS ORDERED: ALBUTEROL (0.083%) 2.5MG/3ML NEB HHN SCH (12:00)
[2022-05-11] MEDS: DOBUTAMINE 250MG PREMIX 250 ML IV SCH (14:16)
[2022-05-11] MEDS: CEFEPIME 2,000 MG in DEXT 5% WATER 100 ML IV SCH (15:45)
[2022-05-11] MEDS: ISOSORBIDE MONONITRATE 30MG TABLET SR 24HR PO SCH (16:43)
[2022-05-11] MEDS ORDERED: FUROSEMIDE 20MG/2ML VIAL IVP NR (23:45)
[2022-05-12] VITALS (96 sets, daily range): BP systolic 86–134; BP diastolic 40–64
[2022-05-12] MEDS: NITROGLYCERIN OINT 1GM/INCH UDPKT TD SCH ×4 (00:04→18:07)
[2022-05-12] MEDS: NEOMYCIN-POLYMYXIN B-HYDROCORTISONE 1% OTIC SOLN 10ML RIGHT EAR SCH ×4 (00:04→18:07)
[2022-05-12] MEDS: AMLODIPINE 5MG TABLET PO SCH ×3 (01:00→17:00)
[2022-05-12] MEDS: IPRATROPIUM/ALBUTEROL 0.5-3(2.5)MG/3ML NEB HHN SCH ×5 (04:19→20:20)
[2022-05-12] MEDS: METHYLPREDNISOLONE SOD SUCC 40 MG/ML VIAL IV SCH ×3 (05:17→22:11)
[2022-05-12] MEDS: HYDRALAZINE HCL 25MG TABLET PO SCH ×3 (05:19→22:00)
[2022-05-12 05:37] LABS: HEMATOCRIT. 25.4 % (42.0-52.0); HEMOGLOBIN. 8.3 g/dL (14.0-18.0); MEAN CORPUSCULAR HEMOGLOBIN 29.4 pg (28.0-32.0); RED BLOOD CELL COUNT 2.83 mill/uL (4.7-6.1); RED CELL DISTRIBUTION WIDTH 17.5 % (11.6-14.6)
[2022-05-12 05:59] LABS: PHOSPHORUS 5.1 mg/dL (2.5-4.9)
[2022-05-12] MEDS: SODIUM CHLORIDE 0.45% 1,000 ML IV SCH ×2 (06:46→16:13)
[2022-05-12 06:50] LABS: PLATELET ESTIMATE MARKEDLY DECREASED
[2022-05-12 06:53] LABS: MEAN PLATELET VOLUME 9.8 fl (7.4-10.4); PLATELET 37 x1000/uL (130-400)
[2022-05-12] MEDS ORDERED: DEXTROSE 50% WATER 50ML SYRINGE IV PRN (07:45)
[2022-05-12] MEDS: BLOOD SUGAR DIAGNOSTIC STRIP TEST SCH ×4 (07:50→21:00)
[2022-05-12] MEDS: BUDESONIDE 0.5MG/2ML NEB HHN SCH ×2 (08:31→20:20)
[2022-05-12] MEDS: INSULIN LISPRO 100 UNITS/ML SUBCUT SCH ×4 (08:46→22:12)
[2022-05-12] MEDS: FAMOTIDINE 20MG/2ML VIAL IV SCH (08:46)
[2022-05-12] MEDS: CALCIUM 1250MG TABLET (500MG ELEMENTAL CALCIUM) PO SCH ×3 (08:46→18:06)
[2022-05-12 09:07] LABS: BG BASE EXCESS -0.7 mmol/L (-2.0-2.0); BG CARBOXYHEMOGLOBIN 0.2 % (0.5-1.5); BG DEOXYHEMOGLOBIN 1.4 % (0.0-5.0); BG FRACTION INSPIRED OXYGEN 30; BG HCO3 ACT 23.1 mmol/L (22.0-26.0); BG METHEMOGLOBIN 0.3 % (0.0-1.5); BG OXYGEN SATURATION 98.6 % (92.0-98.5); BG OXYHEMOGLOBIN 98.1 % (94.0-97.0); BG PCO2 34.4 mmHg (35.0-45.0); BG PH 7.444 (7.350-7.450); BG PO2 140.4 mmHg (75.0-100.0); BG SAMPLE SITE LEFT RADIAL; BG TOTAL HEMOGLOBIN 9.1 g/dL (12.0-18.0); BG TOTAL RESPIRATORY RATE 32 b/min; BG VENT MODE VENT - AC
[2022-05-12 14:24] LABS: BG BASE EXCESS -2.9 mmol/L (-2.0-2.0); BG CARBOXYHEMOGLOBIN 1.2 % (0.5-1.5); BG DEOXYHEMOGLOBIN 23.1 % (0.0-5.0); BG FRACTION INSPIRED OXYGEN 30; BG HCO3 ACT 21.9 mmol/L (22.0-26.0); BG METHEMOGLOBIN 0.1 % (0.0-1.5); BG OXYGEN SATURATION 76.6 % (92.0-98.5); BG OXYHEMOGLOBIN 75.6 % (94.0-97.0); BG PCO2 38.2 mmHg (35.0-45.0); BG PH 7.376 (7.350-7.450); BG PO2 44.9 mmHg (75.0-100.0); BG SAMPLE SITE RIGHT RADIAL; BG TOTAL HEMOGLOBIN 10.7 g/dL (12.0-18.0); BG TOTAL RESPIRATORY RATE 29 b/min; BG VENT MODE VENT - AC
[2022-05-12] MEDS ORDERED: RACEPINEPHRINE 2.25% 0.5ML NEB VIAL HHN PRN (14:30)
[2022-05-12] MEDS: DOBUTAMINE 250MG PREMIX 250 ML IV SCH (14:55)
[2022-05-12 14:56] LABS: HEMOGLOBIN 9.9 g/dL (14.0-18.0); MEAN CORPUSCULAR HEMOGLOBIN 29.2 pg (28.0-32.0); MEAN CORPUSCULAR VOLUME 91.1 fL (80.0-94.0)
[2022-05-12 14:59] LABS: PLATELET 49 x1000/uL (130-400)
[2022-05-12] MEDS: FENTANYL 2500MCG/250ML PMX 250 ML IV PRN (16:12)
[2022-05-12] MEDS: CEFEPIME 2,000 MG in DEXT 5% WATER 100 ML IV SCH (16:12)
[2022-05-12] MEDS: ISOSORBIDE MONONITRATE 30MG TABLET SR 24HR PO SCH (18:06)
[2022-05-12] MEDS: MIDAZOLAM HCL 100 MG in SODIUM CHLORIDE 0.9% 100 ML IV PRN (18:57)
[2022-05-12] MEDS: NOREPINEPHRINE 8 MG in DEXT 5% WATER 242 ML IV PRN (20:35)
[2022-05-12] MEDS ORDERED: FUROSEMIDE 20MG/2ML VIAL IVP NR (23:45)
[2022-05-12 23:58] LABS: HEMATOCRIT 27.2 % (42.0-52.0); HEMOGLOBIN 8.6 g/dL (14.0-18.0); MEAN CORPUSCULAR HEMOGLOBIN 29.2 pg (28.0-32.0); MEAN CORPUSCULAR VOLUME 92.4 fL (80.0-94.0); PLATELET 57 x1000/uL (130-400); RED BLOOD CELL COUNT 2.94 mill/uL (4.7-6.1); RED CELL DISTRIBUTION WIDTH 18.9 % (11.6-14.6)
[2022-05-13] VITALS (90 sets, daily range): BP systolic 76–111; BP diastolic 36–52
[2022-05-13] MEDS: AMLODIPINE 5MG TABLET PO SCH ×3 (00:15→16:54)
[2022-05-13] MEDS: NEOMYCIN-POLYMYXIN B-HYDROCORTISONE 1% OTIC SOLN 10ML RIGHT EAR SCH ×3 (00:22→13:25)
[2022-05-13] MEDS: IPRATROPIUM/ALBUTEROL 0.5-3(2.5)MG/3ML NEB HHN SCH ×6 (00:38→20:21)
[2022-05-13] MEDS: MIDAZOLAM HCL 100 MG in SODIUM CHLORIDE 0.9% 100 ML IV PRN ×2 (02:39→13:53)
[2022-05-13] MEDS: SODIUM CHLORIDE 0.45% 1,000 ML IV SCH ×3 (02:39→22:47)
[2022-05-13 04:48] LABS: HEMATOCRIT. 28.5 % (42.0-52.0); HEMOGLOBIN. 8.9 g/dL (14.0-18.0); MEAN CORPUSCULAR HEMOGLOBIN 29.1 pg (28.0-32.0); MEAN PLATELET VOLUME 9.4 fl (7.4-10.4); RED BLOOD CELL COUNT 3.06 mill/uL (4.7-6.1); RED CELL DISTRIBUTION WIDTH 19.3 % (11.6-14.6)
[2022-05-13 04:55] LABS: PLATELET 46 x1000/uL (130-400)
[2022-05-13 05:03] LABS: PHOSPHORUS 5.8 mg/dL (2.5-4.9)
[2022-05-13] MEDS: HYDRALAZINE HCL 25MG TABLET PO SCH ×3 (05:39→22:00)
[2022-05-13] MEDS: METHYLPREDNISOLONE SOD SUCC 40 MG/ML VIAL IV SCH ×3 (05:40→22:41)
[2022-05-13] MEDS: NITROGLYCERIN OINT 1GM/INCH UDPKT TD SCH ×5 (05:40→23:48)
[2022-05-13 07:43] LABS: PLATELET ESTIMATE MARKEDLY DECREASED
[2022-05-13] MEDS: BLOOD SUGAR DIAGNOSTIC STRIP TEST SCH ×3 (07:50→17:50)
[2022-05-13] MEDS: BUDESONIDE 0.5MG/2ML NEB HHN SCH (08:41)
[2022-05-13 08:42] LABS: BG BASE EXCESS -3.1 mmol/L (-2.0-2.0); BG CARBOXYHEMOGLOBIN 0.3 % (0.5-1.5); BG DEOXYHEMOGLOBIN 12.8 % (0.0-5.0); BG FRACTION INSPIRED OXYGEN 100; BG HCO3 ACT 24.4 mmol/L (22.0-26.0); BG METHEMOGLOBIN 0.3 % (0.0-1.5); BG OXYGEN SATURATION 87.1 % (92.0-98.5); BG OXYHEMOGLOBIN 86.6 % (94.0-97.0); BG PCO2 55.8 mmHg (35.0-45.0); BG PH 7.258 (7.350-7.450); BG SAMPLE SITE LEFT RADIAL; BG TOTAL HEMOGLOBIN 10.2 g/dL (12.0-18.0); BG TOTAL RESPIRATORY RATE 24 b/min; BG VENT MODE VENT - AC
[2022-05-13] MEDS: CALCIUM 1250MG TABLET (500MG ELEMENTAL CALCIUM) PO SCH ×3 (09:02→17:02)
[2022-05-13] MEDS: INSULIN LISPRO 100 UNITS/ML SUBCUT SCH ×3 (09:02→18:22)
[2022-05-13] MEDS: FAMOTIDINE 20MG/2ML VIAL IV SCH (09:02)
[2022-05-13] MEDS: NOREPINEPHRINE 8 MG in DEXT 5% WATER 242 ML IV PRN ×2 (10:55→18:55)
[2022-05-13 12:44] LABS: BG BASE EXCESS -2.3 mmol/L (-2.0-2.0); BG CARBOXYHEMOGLOBIN 0.3 % (0.5-1.5); BG FRACTION INSPIRED OXYGEN 100; BG HCO3 ACT 23.6 mmol/L (22.0-26.0); BG METHEMOGLOBIN 0.2 % (0.0-1.5); BG OXYHEMOGLOBIN 93.5 % (94.0-97.0); BG PCO2 45.2 mmHg (35.0-45.0); BG PH 7.335 (7.350-7.450); BG SAMPLE SITE RIGHT RADIAL; BG TOTAL HEMOGLOBIN 9.4 g/dL (12.0-18.0); BG TOTAL RESPIRATORY RATE 24 b/min; BG VENT MODE VENT - AC
[2022-05-13] MEDS: FENTANYL 2500MCG/250ML PMX 250 ML IV PRN (13:26)
[2022-05-13] MEDS: DOBUTAMINE 250MG PREMIX 250 ML IV SCH (15:39)
[2022-05-13] MEDS ORDERED: SODIUM POLYSTYRENE SULFONATE 15 G/60 ML BOT NG NR (16:30)
[2022-05-13] MEDS: MEROPENEM 1,000 MG in SODIUM CHLORIDE 0.9% 100 ML IV SCH (17:02)
[2022-05-13] MEDS: ISOSORBIDE MONONITRATE 30MG TABLET SR 24HR PO SCH (17:02)
[2022-05-13] MEDS ORDERED: FENTANYL 2500MCG/250ML PMX 250 ML IV PRN (19:30)
[2022-05-13] MEDS ORDERED: LINEZOLID 600 MG PREMIX 300 ML IV SCH (20:00)
[2022-05-13] MEDS ORDERED: VANCOMYCIN 1500MG in DEXTROSE 5% WATER 250ML IV NR (21:00)
[2022-05-13] MEDS ORDERED: FUROSEMIDE 20MG/2ML VIAL IVP NR (23:15)
[2022-05-14] VITALS (96 sets, daily range): BP systolic 85–119; BP diastolic 41–57
[2022-05-14] MEDS: IPRATROPIUM/ALBUTEROL 0.5-3(2.5)MG/3ML NEB HHN SCH ×7 (00:24→23:28)
[2022-05-14] MEDS: DEXT 5%/0.45% NACL 1000ML 1,000 ML IV SCH ×3 (00:26→21:41)
[2022-05-14] MEDS: BLOOD SUGAR DIAGNOSTIC STRIP TEST SCH ×4 (00:26→17:55)
[2022-05-14] MEDS: AMLODIPINE 5MG TABLET PO SCH ×2 (00:27→09:00)
[2022-05-14] MEDS: INSULIN LISPRO 100 UNITS/ML SUBCUT SCH ×4 (00:41→18:11)
[2022-05-14] MEDS: MIDAZOLAM HCL 100 MG in SODIUM CHLORIDE 0.9% 100 ML IV PRN ×2 (00:42→18:53)
[2022-05-14] MEDS: NOREPINEPHRINE 8 MG in DEXT 5% WATER 242 ML IV PRN ×3 (00:44→21:45)
[2022-05-14] MEDS: HYDRALAZINE HCL 25MG TABLET PO SCH ×2 (06:00→13:49)
[2022-05-14 06:02] LABS: HEMATOCRIT 23.9 % (42.0-52.0); HEMOGLOBIN 7.8 g/dL (14.0-18.0); MEAN CORPUSCULAR HEMOGLOBIN 29.5 pg (28.0-32.0); RED BLOOD CELL COUNT 2.63 mill/uL (4.7-6.1); RED CELL DISTRIBUTION WIDTH 18.8 % (11.6-14.6)
[2022-05-14] MEDS: METHYLPREDNISOLONE SOD SUCC 40 MG/ML VIAL IV SCH ×3 (06:33→21:41)
[2022-05-14] MEDS: NITROGLYCERIN OINT 1GM/INCH UDPKT TD SCH ×2 (06:34→12:00)
[2022-05-14] MEDS: MEROPENEM 1,000 MG in SODIUM CHLORIDE 0.9% 100 ML IV SCH ×2 (06:40→17:04)
[2022-05-14 06:43] LABS: PLATELET 22 x1000/uL (130-400)
[2022-05-14] MEDS: CALCIUM 1250MG TABLET (500MG ELEMENTAL CALCIUM) PO SCH ×3 (09:00→17:03)
[2022-05-14] MEDS ORDERED: PANTOPRAZOLE SODIUM 40 MG/VIAL IV SCH (09:00)
[2022-05-14 09:02] LABS: BG BASE EXCESS -1.7 mmol/L (-2.0-2.0); BG DEOXYHEMOGLOBIN 0.9 % (0.0-5.0); BG FRACTION INSPIRED OXYGEN 100; BG HCO3 ACT 21.9 mmol/L (22.0-26.0); BG METHEMOGLOBIN 0.4 % (0.0-1.5); BG OXYGEN SATURATION 99.1 % (92.0-98.5); BG OXYHEMOGLOBIN 98.7 % (94.0-97.0); BG PCO2 32.9 mmHg (35.0-45.0); BG PH 7.442 (7.350-7.450); BG PO2 219.3 mmHg (75.0-100.0); BG SAMPLE SITE RIGHT RADIAL; BG TOTAL HEMOGLOBIN 9.2 g/dL (12.0-18.0); BG VENT MODE VENT - PRVC
[2022-05-14] MEDS ORDERED: MIDAZOLAM 100MG/100ML PMX 100 ML IV PRN (10:45)
[2022-05-14] MEDS: DOBUTAMINE 250MG PREMIX 250 ML IV SCH (13:53)
[2022-05-15] VITALS (96 sets, daily range): BP systolic 92–125; BP diastolic 42–55
[2022-05-15] MEDS: INSULIN LISPRO 100 UNITS/ML SUBCUT SCH ×5 (00:29→23:50)
[2022-05-15] MEDS: BLOOD SUGAR DIAGNOSTIC STRIP TEST SCH ×5 (00:29→23:49)
[2022-05-15] MEDS: IPRATROPIUM/ALBUTEROL 0.5-3(2.5)MG/3ML NEB HHN SCH ×5 (04:00→20:28)
[2022-05-15] MEDS: MEROPENEM 1,000 MG in SODIUM CHLORIDE 0.9% 100 ML IV SCH ×2 (04:28→17:32)
[2022-05-15 05:57] LABS: HEMATOCRIT. 24.4 % (42.0-52.0); HEMOGLOBIN. 7.8 g/dL (14.0-18.0); MEAN CORPUSCULAR HEMOGLOBIN 29.4 pg (28.0-32.0); MEAN CORPUSCULAR VOLUME 91.7 fL (80.0-94.0); MEAN PLATELET VOLUME 10.9 fl (7.4-10.4); RED BLOOD CELL COUNT 2.66 mill/uL (4.7-6.1); RED CELL DISTRIBUTION WIDTH 19.4 % (11.6-14.6)
[2022-05-15 06:18] LABS: PLATELET 11 x1000/uL (130-400)
[2022-05-15] MEDS: DEXT 5%/0.45% NACL 1000ML 1,000 ML IV SCH ×2 (06:30→15:45)
[2022-05-15 07:22] LABS: PHOSPHORUS 5.8 mg/dL (2.5-4.9)
[2022-05-15] MEDS: NOREPINEPHRINE 8 MG in DEXT 5% WATER 242 ML IV PRN (08:36)
[2022-05-15 09:05] LABS: BG BASE EXCESS -2.8 mmol/L (-2.0-2.0); BG CARBOXYHEMOGLOBIN 0.4 % (0.5-1.5); BG DEOXYHEMOGLOBIN 5.4 % (0.0-5.0); BG FRACTION INSPIRED OXYGEN 60; BG HCO3 ACT 22.7 mmol/L (22.0-26.0); BG METHEMOGLOBIN 0.2 % (0.0-1.5); BG OXYGEN SATURATION 94.6 % (92.0-98.5); BG PCO2 42.2 mmHg (35.0-45.0); BG PH 7.349 (7.350-7.450); BG PO2 80.5 mmHg (75.0-100.0); BG SAMPLE SITE RIGHT RADIAL; BG TOTAL HEMOGLOBIN 9.9 g/dL (12.0-18.0); BG VENT MODE VENT - AC
[2022-05-15] MEDS: CALCIUM 1250MG TABLET (500MG ELEMENTAL CALCIUM) PO SCH ×3 (09:14→17:32)
[2022-05-15] MEDS: METHYLPREDNISOLONE SOD SUCC 40 MG/ML VIAL IV SCH (09:14)
[2022-05-15] MEDS ORDERED: VANCOMYCIN 1500MG in DEXTROSE 5% WATER 250ML IV NR (11:00)
[2022-05-15 11:15] LABS: INR 1.1; PROTHROMBIN TIME 11.9 sec (9.6-11.0)
[2022-05-15] MEDS: PANTOPRAZOLE SODIUM 40 MG/VIAL IV SCH ×2 (11:39→21:17)
[2022-05-15] MEDS: DOBUTAMINE 250MG PREMIX 250 ML IV SCH (13:31)
[2022-05-15 13:40] LABS: PLATELET ESTIMATE MARKEDLY DECREASED
[2022-05-15] MEDS: MIDAZOLAM HCL 100 MG in SODIUM CHLORIDE 0.9% 100 ML IV PRN (18:12)
[2022-05-15] MEDS ORDERED: FUROSEMIDE 20MG/2ML VIAL IVP NR (18:45)
[2022-05-15] MEDS ORDERED: BISACODYL 10MG SUPP PR NR (18:45)
[2022-05-15] MEDS ORDERED: LACTULOSE 20G/30ML UDC PO NR (18:45)
[2022-05-16] VITALS (54 sets, daily range): BP systolic 49–111; BP diastolic 21–63
[2022-05-16] MEDS: IPRATROPIUM/ALBUTEROL 0.5-3(2.5)MG/3ML NEB HHN SCH ×4 (00:03→11:45)
[2022-05-16] MEDS: NOREPINEPHRINE 8 MG in DEXT 5% WATER 242 ML IV PRN (00:25)
[2022-05-16 05:24] LABS: HEMATOCRIT. 23.3 % (42.0-52.0); HEMOGLOBIN. 7.5 g/dL (14.0-18.0); MEAN CORPUSCULAR VOLUME 90.2 fL (80.0-94.0); MEAN PLATELET VOLUME 9.6 fl (7.4-10.4); RED BLOOD CELL COUNT 2.59 mill/uL (4.7-6.1); RED CELL DISTRIBUTION WIDTH 19.5 % (11.6-14.6)
[2022-05-16 05:36] LABS: PLATELET 23 x1000/uL (130-400)
[2022-05-16] MEDS: DEXT 5%/0.45% NACL 1000ML 1,000 ML IV SCH (06:04)
[2022-05-16] MEDS: BLOOD SUGAR DIAGNOSTIC STRIP TEST SCH (06:04)
[2022-05-16] MEDS: INSULIN LISPRO 100 UNITS/ML SUBCUT SCH (06:04)
[2022-05-16] MEDS: MEROPENEM 1,000 MG in SODIUM CHLORIDE 0.9% 100 ML IV SCH (06:04)
[2022-05-16 08:50] LABS: BG BASE EXCESS -2.8 mmol/L (-2.0-2.0); BG CARBOXYHEMOGLOBIN 0.8 % (0.5-1.5); BG DEOXYHEMOGLOBIN 13.3 % (0.0-5.0); BG FRACTION INSPIRED OXYGEN 40; BG HCO3 ACT 21.6 mmol/L (22.0-26.0); BG METHEMOGLOBIN 0.3 % (0.0-1.5); BG OXYGEN SATURATION 86.6 % (92.0-98.5); BG OXYHEMOGLOBIN 85.6 % (94.0-97.0); BG PCO2 35.4 mmHg (35.0-45.0); BG PH 7.403 (7.350-7.450); BG PO2 54.7 mmHg (75.0-100.0); BG SAMPLE SITE RIGHT BRACHIAL; BG TOTAL HEMOGLOBIN 8.1 g/dL (12.0-18.0); BG VENT MODE VENT - AC
[2022-05-16] MEDS ORDERED: PREDNISONE 20MG TABLET PO SCH (09:00)
[2022-05-16] MEDS: CALCIUM 1250MG TABLET (500MG ELEMENTAL CALCIUM) PO SCH (09:13)
[2022-05-16] MEDS: PANTOPRAZOLE SODIUM 40 MG/VIAL IV SCH (09:14)
[2022-05-16] MEDS ORDERED: PHENYLEPHRINE 100 MG in DEXT 5% WATER 240 ML IV PRN (10:00)
[2022-05-16 10:19] LABS: PLATELET ESTIMATE MARKEDLY DECREASED
[2022-05-16] MEDS ORDERED: SODIUM CHLORIDE 0.9% 1,000 ML IV ONE ×2 (12:00→23:55)
[2022-05-16] MEDS ORDERED: VASOPRESSIN 20 UNIT in SODIUM CHLORIDE 0.9% 99 ML IV PRN (12:00)
[2022-05-16] MEDS ORDERED: EPINEPHRINE 0.1MG/ML (1:10,000) 10ML SYR IV NR (12:15)
[2022-05-16] MEDS ORDERED: CALCIUM GLUCONATE 1GM PREMIX 50 ML IV NR (12:15)
== END 2022-05-16 13:06 | DRG 870 ==
LOC: ER 01:46 → 7EST 05:20 → 5EST 05-02 12:35 → CVICU 05-07 17:50
PROVIDERS: ADMIT Internal Medicine; ATTEND Internal Medicine
PROC: 5A1955Z Respiratory Ventilation, Greater than 96 Consecutive Hours (ICD-10-PCS; principal; 2022-05-08)
PROC: 0BH17EZ Insertion of Endotracheal Airway into Trachea, Via Natural or Artificial Opening (ICD-10-PCS; 2022-05-08)
PROC: 0B9J8ZX Drainage of Left Lower Lung Lobe, Via Natural or Artificial Opening Endoscopic, Diagnostic (ICD-10-PCS; 2022-05-10)
PROC: 0B9F8ZX Drainage of Right Lower Lung Lobe, Via Natural or Artificial Opening Endoscopic, Diagnostic (ICD-10-PCS; 2022-05-10)
PROC: B54MZZA Ultrasonography of Right Upper Extremity Veins, Guidance (ICD-10-PCS; 2022-05-11)
PROC: 05HY33Z Insertion of Infusion Device into Upper Vein, Percutaneous Approach (ICD-10-PCS; 2022-05-11)
PROC: 30233R1 Transfusion of Nonautologous Platelets into Peripheral Vein, Percutaneous Approach (ICD-10-PCS; 2022-05-12)
DX: A41.9 Sepsis, unspecified organism (principal); E43 Unspecified severe protein-calorie malnutrition; I50.21 Acute systolic (congestive) heart failure; J96.01 Acute respiratory failure with hypoxia; I21.A1 Myocardial infarction type 2; J18.9 Pneumonia, unspecified organism; I13.0 Hypertensive heart and chronic kidney disease with heart failure and stage 1 through stage 4 chronic kidney disease, or unspecified chronic kidney disease; I42.9 Cardiomyopathy, unspecified; E87.0 Hyperosmolality and hypernatremia; D68.59 Other primary thrombophilia; N17.9 Acute kidney failure, unspecified; N18.9 Chronic kidney disease, unspecified; Z20.822 Contact with and (suspected) exposure to COVID-19; D63.8 Anemia in other chronic diseases classified elsewhere; D69.6 Thrombocytopenia, unspecified; E87.5 Hyperkalemia; I27.20 Pulmonary hypertension, unspecified; R65.20 Severe sepsis without septic shock; E78.00 Pure hypercholesterolemia, unspecified; R74.01 Elevation of levels of liver transaminase levels; E83.41 Hypermagnesemia; K59.00 Constipation, unspecified; I08.1 Rheumatic disorders of both mitral and tricuspid valves; E83.39 Other disorders of phosphorus metabolism; I44.4 Left anterior fascicular block; Z79.02 Long term (current) use of antithrombotics/antiplatelets; Z79.82 Long term (current) use of aspirin; Z95.2 Presence of prosthetic heart valve; Z87.891 Personal history of nicotine dependence; Z95.828 Presence of other vascular implants and grafts; Z79.899 Other long term (current) drug therapy; Z68.26 Body mass index [BMI] 26.0-26.9, adult; Z86.718 Personal history of other venous thrombosis and embolism; Z86.73 Personal history of transient ischemic attack (TIA), and cerebral infarction without residual deficits
CPT/HCPCS: 31500; 36415; 36573; 36600; 71045; 71250; 74018; 76700; 76770; 78582; 80048; 80053; 80076; 80202; 80305; 81003; 81403; 81407; 81479; 82164; 82270; 82375; 82542; 82550; 82553; 82570; 82805; 82962; 83036; 83520; 83605; 83615; 83735; 83880; 84100; 84132; 84145; 84300; 84478; 84484; 85025; 85027; 85306; 85307; 85379; 85384; 85651; 86022; 86038; 86256; 86480; 86635; 86850; 86900; 87070; 87426; 93005; 93306; 93970; 94002; 94003; 94640; 99285; A9558; C1725; C1769; C9113; C9803; J0610; J0692; J0696; J1250; J1650; J1815; J1940; J2020; J2185; J2250; J2704; J2920; J2930; J3010; J3370; J3490; J7030; J7050; J7060; J7131; J7512; J7626; P9034; A4315; P9036